=== PATIENT | female | born 1955 | race Caucasian/White ===

== ENCOUNTER 2016-11-10 10:55 | Emergency (ER) | payer BC ==
[~2016-11-10] VITALS: Ht 160 cm; Wt 78.0 kg
[~2016-11-10 10:55] MED LIST: AMBI5TAB PO; ASPI81TA85 PO; CALCCHW8 PO; CORE6.25 PO; FLON1SPR; LEVO75TA4 PO; LOTE1TAB PO; MELO15TA4 PO; METF500T PO; MULTTAB63 PO; TRIPCAP6 PO; VITA200010 PO; VITA500T88 PO; [UNRECOGNIZED DRUG - CODE]
[2016-11-10] MEDS ORDERED: MECLIZINE 25 MG TABLET PO ONE (12:30)
[2016-11-10] MEDS ORDERED: ONDANSETRON 4MG/2ML VIAL (J2405) IV ONE (12:30)
[2016-11-10 12:47] LABS: BASO % 0.6 % (0.0-1.0); EOS # 0.3 K/mm3 (0.0-0.50); EOS % 3.7 % (0.0-3.0); LARGE UNSTAINED CELL # 0.1 K/mm3 (0.0-0.4); LARGE UNSTAINED CELL % 1.2 % (0.0-4.0); LYMPH # 1.3 K/mm3 (1.5-4.5); LYMPH % 14.6 % (24.0-44.0); MEAN CORPUSCULAR HGB CONC 32.6 g/dl (32.0-36.5); MEAN CORPUSCULAR VOLUME 92.2 fl (80.0-96.0); MONO # 0.4 K/mm3 (0.0-0.8); MONO % 4.5 % (0.0-5.0); NEUTROPHILS # 5.9 K/mm3 (1.8-7.7); NEUTROPHILS % 75.4 % (36.0-66.0); PLATELET COUNT, AUTOMATED 234 k/mm3 (150-450); RED CELL DISTRIBUTION WIDTH 14.5 % (11.5-14.5); WHITE BLOOD COUNT 7.9 K/mm3 (4.0-10.0)
--- NOTE | 2016-11-10 13:00 | REP ---
CHEST X-RAY PA AND LATERAL 11/10/2016. Clinical history: Weakness. Comparison: CT chest 01/26/2011, PA chest 02/17/2010. Findings: Two-view show the CP angles sharply defined without effusion. There is no lateral pleural thickening, apical scarring, pneumothorax or mass. Basilar fibrotic change without consolidation or mass. No dense consolidation or parenchymal masses. Minor fibrotic changes are noted in the lung bases, right greater than left. There is no gross cardiomegaly, vascular redistribution or pulmonary edema. There are marginal osteophytes in the lower and mid thoracic spine without compression deformity. Impression: 1. Some minor basilar fibrotic change without cardiomegaly, edema, effusion or acute infiltrate. The aorta mildly tortuous but normal for age. Airway intact. Incidental note made of right upper quadrant clips from prior cholecystectomy. Signed by Sincere Garcia MD 11/10/2016 08:26 P
[2016-11-10 13:14] LABS: ALBUMIN 3.2 GM/DL (3.2-5.2); ALBUMIN/GLOBULIN RATIO 0.8 (1.00-1.93); BILIRUBIN,DIRECT 0.1 MG/DL (0.0-0.2); BILIRUBIN,TOTAL 0.5 MG/DL (0.2-1.0); CALCIUM LEVEL 8.5 MG/DL (8.8-10.2); CREATININE FOR GFR 1.04 MG/DL (0.55-1.02); POTASSIUM SERUM 3.9 MEQ/L (3.5-5.1); TOTAL PROTEIN 7.2 GM/DL (6.4-8.2)
--- NOTE | 2016-11-10 14:01 | REP ---
CT BRAIN WITHOUT CONTRAST: 11/10/2016. Clinical history: Vertigo and headache. No prior study. Ventricles are midline, symmetric and without dilatation or displacement. Basal ganglia are symmetric and normal. Hidalgo white junction differentiation is maintained. I do not see significant white matter changes. Cortical stripe is preserved with no vascular territory infarct, hemorrhage, mass, mass effect or edema. Only minimal atrophy which is age appropriate. Brainstem and cerebellum are grossly intact. Basal cisterns intact. Mastoids and sinuses visible were clear. The calvarium and skull base are without fracture or focal lesion. Impression: 1. There is no intracranial hemorrhage, acute infarct, mass, edema or extra-axial fluid collection. 2. White matter tracts unremarkable without ventriculomegaly or signs of atrophy. 3. Sinuses, mastoids, skull base and calvarium all intact. Nothing acute. Signed by Sincere Garcia MD 11/10/2016 08:27 P
[2016-11-10] MEDS ORDERED: MECL-68 PO (14:41)
[2016-11-10 15:13] VITALS: BP 156/82
--- NOTE | 2016-11-11 20:51 | ECGEPIP ---
Stationary ECG Study 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
== END 2016-11-10 15:24 | disposition home or self-care (01) ==
LOC: M ED 13:23
DX: H81.49 Vertigo of central origin, unspecified ear (principal); I10 Essential (primary) hypertension; E03.9 Hypothyroidism, unspecified; Z91.041 Radiographic dye allergy status; Z88.8 Allergy status to other drugs, medicaments and biological substances; Z91.013 Allergy to seafood; Z79.84 Long term (current) use of oral hypoglycemic drugs; Z79.899 Other long term (current) drug therapy; Z79.82 Long term (current) use of aspirin
CPT/HCPCS: 36415; 70450; 71020; 80048; 80076; 84443; 85025; 93005; 96374; 99284; J2405

== ENCOUNTER 2017-04-24 00:45 | Inpatient (IN) | payer OTHER, BC ==
[~2017-04-24] VITALS: Ht 160 cm; Wt 81.6 kg
[~2017-04-24 00:45] MED LIST changes: +MECL-68 PO; -METF500T PO; +METF500T13 PO; -[UNRECOGNIZED DRUG - CODE]; +[UNRECOGNIZED DRUG - CODE] TOP
[2017-04-24] MEDS ORDERED: IBUPROFEN 800 MG TAB As Ordered ONE (00:57)
[2017-04-24] MEDS ORDERED: PERCOCET 5MG/325MG TAB As Ordered ONE (00:58)
[2017-04-24] MEDS ORDERED: ONDANSETRON 4MG/2ML VIAL (J2405) As Ordered ONE (01:39)
[2017-04-24] MEDS ORDERED: HYDROmorphone HCL 1 MG/ML SYRINGE (J1170) As Ordered ONE (01:39)
[2017-04-24] MEDS ORDERED: PROPOFOL 200 MG/20 ML VIAL As Ordered ONE (03:24)
[2017-04-24] MEDS ORDERED: MORPHINE 4 MG/ML 1ML SYRINGE IV ONE (04:00)
[2017-04-24] MEDS ORDERED: OMEG100011 PO (05:00)
[2017-04-24] MEDS ORDERED: VITMTA PO (05:00)
[2017-04-24] MEDS ORDERED: TYLE500T78 PO (05:00)
[2017-04-24] MEDS ORDERED: EPIN1DRO OU (05:00)
[2017-04-24] MEDS ORDERED: ZOLP5TAB PO (05:00)
[2017-04-24] MEDS ORDERED: MECL-68 PO (05:00)
[2017-04-24] MEDS ORDERED: CALC1TAB30 PO (05:00)
[2017-04-24] MEDS ORDERED: BENA20TA6 PO (05:00)
--- NOTE | 2017-04-24 08:12 | REP ---
Right ankle four views: There is a spiral fracture of the distal fibula. The distal fracture fragment is angulated laterally and posteriorly. There are fracture fragments posteriorly, possibly from the medial malleolus and posterior malleolus. There is anterior dislocation of the distal tibia in relation to the talus. Impression: Tibiotalar dislocation. Trimalleolar fracture. Signed by Juan Jose Canseco MD 04/24/2017 08:02 A
--- NOTE | 2017-04-24 08:23 | REP ---
Portable right ankle, two views, post reduction: Comparison is the ankle series earlier this same date. There is a fiberglass splint. The dislocation has been satisfactorily reduced. The fractures have been satisfactorily reduced. Signed by Juan Jose Canseco MD 04/24/2017 08:13 A
--- NOTE | 2017-04-24 09:01 | REP ---
CT of the right ankle post reduction: Comparison studies are the plain films from earlier today. There is a trimalleolar fracture. The fractures have been satisfactorily reduced. The dislocation has been satisfactorily reduced. There is a posterior fiberglass splint. The ankle mortise appears symmetric. No calcaneal fracture is identified Signed by Juan Jose Canseco MD 04/24/2017 08:53 A
--- NOTE | 2017-04-24 09:04 | REP ---
PORTABLE CHEST, SINGLE VIEW: Comparison 11/10/2016. There is no evidence of acute infiltrate. No pleural effusion is seen. The heart is normal in size. The mediastinal silhouette is unremarkable. The visualized osseous structures are intact. IMPRESSION: No acute pulmonary disease. Signed by Juan Jose Hidalgo MD 04/24/2017 09:42 A
[2017-04-24] MEDS ORDERED: MORPHINE 2 MG/ML 1ML SYRINGE As Ordered ONE (09:18)
[2017-04-24 10:20] VITALS: BP 173/78
[2017-04-24 11:15] LABS: BASO % 0.7 % (0.0-1.0); EOS # 0.2 K/mm3 (0.0-0.50); EOS % 3.5 % (0.0-3.0); LARGE UNSTAINED CELL # 0.2 K/mm3 (0.0-0.4); LARGE UNSTAINED CELL % 3.1 % (0.0-4.0); MEAN CORPUSCULAR HGB CONC 34.5 g/dl (32.0-36.5); MEAN CORPUSCULAR VOLUME 89.9 fl (80.0-96.0); MONO # 0.4 K/mm3 (0.0-0.8); MONO % 6.3 % (0.0-5.0); NEUTROPHILS % 52.4 % (36.0-66.0); PLATELET COUNT, AUTOMATED 238 k/mm3 (150-450); RED CELL DISTRIBUTION WIDTH 13.5 % (11.5-14.5); WHITE BLOOD COUNT 5.8 K/mm3 (4.0-10.0)
[2017-04-24] MEDS: LEVOTHYROXINE 75MCG TABLET (0.075MG) PO SCH (11:24)
[2017-04-24] MEDS: CARVedilol 6.25 MG TAB PO SCH ×2 (11:25→21:20)
[2017-04-24 11:32] LABS: ALBUMIN 3.2 GM/DL (3.2-5.2); ALBUMIN/GLOBULIN RATIO 1.07 (1.00-1.93); BILIRUBIN,TOTAL 0.5 MG/DL (0.2-1.0); CALCIUM LEVEL 8.5 MG/DL (8.8-10.2); CREATININE FOR GFR 1.09 MG/DL (0.55-1.02); TOTAL PROTEIN 6.2 GM/DL (6.4-8.2)
[2017-04-24] MEDS ORDERED: PERCOCET 5MG/325MG TAB PO PRN (11:45)
[2017-04-24] MEDS ORDERED: ONDANSETRON 4MG/2ML VIAL (J2405) IV PRN (11:45)
[2017-04-24 11:47] LABS: INR 0.97
[2017-04-24] MEDS ORDERED: PERCOCET 5MG/325MG TAB PO ONE (12:00)
[2017-04-24 12:45] VITALS: BP 129/61
[2017-04-24] MEDS: MORPHINE 4 MG/ML 1ML SYRINGE IV PRN ×3 (13:34→22:45)
[2017-04-24] MEDS ORDERED: MOM 30ML SUSPENSION UDC PO PRN (14:15)
[2017-04-24] MEDS ORDERED: MECLIZINE 25 MG TABLET PO PRN (14:15)
[2017-04-24] MEDS ORDERED: PERCOCET 5MG/325MG TAB PO SCH (15:45)
[2017-04-24] MEDS: OLOPATADINE 0.1% OPHTH SOL 5ML(PATANOL) OU SCH (15:54)
[2017-04-24] MEDS: PERCOCET 5MG/325MG TAB PO PRN (15:55)
[2017-04-24 16:00] VITALS: BP 132/60
--- NOTE | 2017-04-24 18:59 | ECGEPIP ---
Stationary ECG Study [facility] Test Date: 2017-04-24 Pat Name: OBIE CLIFFORD Department: Room: [place] [address] Gender: F Risk Analyst: : 1955 Requested By: LUANN Oconnell Order Number: [id number] Reading MD: Agus Shell Measurements Intervals [place] Rate: 57 P: 64 MO: 187 QRS: 23 QRSD: 101 T: 88 QT: 411 QTc: 403 Interpretive Statements Sinus bradycardia Delayed anterior R-wave progression Nonspecific ST-T wave abnormalities No significant change from 11/10/2016 Electronically Signed On 04-24-2017 18:58:46 EDT by Agus Shell
[2017-04-24 20:00] VITALS: BP 123/57
[2017-04-24] MEDS: SENOKOT S TAB PO SCH (21:20)
--- NOTE | 2017-04-24 21:33 | CR ---
DATE OF CONSULTATION: 04/24/2017 Ms. Brown is a patient of Dr. Agus Shell. This consultation is completed for Dr. Raj De Dios. CHIEF COMPLAINT: Right ankle fracture/dislocation. SUMMARY OF PRESENTATION: This is a 61-year-old who is working at [employer]. She was moving a chair from a patient's room back to the common area, tripped, and had right ankle pain. Was brought to the emergency room for evaluation and was found to have a fractured/dislocated right ankle that was reduced in the emergency department. She was seen in consultation by Dr. De Dios, who plans to take her for surgical correction. Was called for preoperative evaluation. PAST MEDICAL HISTORY: Notable for: 1. Hypertension. 2. Glucose intolerance, although she is on metformin. 3. Hypothyroidism. 4. Osteoarthritis of the left shoulder due to a rotator cuff injury, which was repaired by Dr. Carlos Garcia. 5. Allergic conjunctivitis. 6. Vertigo. 7. Situational insomnia. 8. Tobacco abuse, in remission. SURGICAL HISTORY: Notable for: 1. Tonsillectomy. 2. Tubal ligation. 3. Partial hysterectomy. 4. Dilatation and curettage. 5. Cholecystectomy. 6. Facial scar revision. 7. Left carpal tunnel release. 8. Thyroid nodule biopsy. 9. Rotator cuff surgery, right. 10. Rotator cuff surgery, left. ALLERGIES: BIAXIN, TETRACYCLINE, VALIUM, IV DYE. FAMILY HISTORY: Notable for father who has hypertension, heart disease, cancer. Mother , diagnosed with diabetes, hypertension, heart disease. SOCIAL HISTORY: She is a former smoker. REVIEW OF SYSTEMS: Notable for no headache. No visual changes. No runny nose. No sore throat. No cough. She has been feeling well recently. No orthopnea. No paroxysmal nocturnal dyspnea. No palpitations. She has excellent exercise tolerance. Easily able to go up a flight of stairs with a basket of laundry. She has not experienced chest pain or shortness of breath. No history of seizures. Otherwise unremarkable. PHYSICAL EXAMINATION: Temperature 98.4, pulse 61, respirations 18, blood pressure 129/61, 98% on room air. She is awake, appropriately interactive, pleasantly conversant. Breathing is symmetrical and rested. Heart is in a regular rate and rhythm. Abdomen soft, doughy, nontender. Right lower extremity is splinted. Capillary refill is less than 2 seconds at her great toe. Sensation is intact. White cell count 5.8, hemoglobin 11.6, platelets 238. INR 0.97. BUN 19, creatinine 1.09. TSH 4.76. A chest x-ray is unremarkable. EKG shows sinus bradycardia with a rate of 57. Possible left atrial enlargement. Nonspecific ST-T-wave abnormality and are quite similar to tracing done 11/10/2016. ASSESSMENT: This is a 61-year-old with fractured/dislocated right ankle. PLAN: 1. Orthopedic. I discussed this case twice today with Dr. De Dios. Plan is for surgical repair of the ankle. Deep vein thrombosis (DVT) prophylaxis, surgical repair, pain management, gastrointestinal (GI) regimen, activity, and rehabilitation per orthopedics. 2. Cardiovascular. Patient has excellent cardiovascular tolerance. Would recommend continuing her Coreg in the perioperative period, but apart from that recommend no further workup or treatment prior to advancing the surgery, but patient does have hypertension. In the perioperative period we will be holding the angiotensin-converting enzyme (MARIBETH) inhibitor and hydrochlorothiazide. 3. Patient has hypothyroidism. Continue Synthroid. 4. Patient has glucose intolerance. There is no role for metformin in this setting. Will put the patient on a consistent-carbohydrate diet. Will check fingersticks twice daily. Can restart metformin at the time of discharge. If necessary will give insulin during the stay. I have elected not to start insulin now. Her most recent hemoglobin A1c was 5.5.
--- NOTE | 2017-04-24 21:49 | CR ---
DATE OF CONSULTATION: 04/24/2017 CHIEF COMPLAINT: Right ankle fracture dislocation. 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 The injury happened last evening. She was seen in the ER. Orthopedics was consulted. I initially saw the patient in the ER in the morning first thing. I appreciated that she had been reduced by Dr. De Leon, the ER physician, and splinted and the reduction appeared to be reasonable with the talus well aligned at that point and her pain was better controlled at that point. The pain is controlled with narcotics as well as because of the reduction. I reviewed the imaging studies which revealed trimalleolar fracture both pre and post reduction. CT scan. We ordered a CT scan and that was also reviewed. The CT scan reflects a fibula fracture, a posterior and medial malleolar component to the trimalleolar with significant comminution and only a thin rim of bone extending around the medial malleolus and the anterior portion of the medial malleolus still seemed to be intact. ALLERGIES: The patient has allergies to CONTRAST, DIAZEPAM, IODINE, TETRACYCLINE, CLARITHROMYCIN, possible shellfish allergy. MEDICAL HISTORY: Includes high blood pressure, hypothyroidism, insulin resistant diabetes, insomnia. SURGICAL HISTORY: Includes multiple rotator cuff repairs of both shoulders and abdominal surgery in the past. No right lower extremity surgery. MEDICATIONS: Include: - Coreg - meloxicam - levothyroxine - metformin - aspirin - vitamin D - vitamin C - Flonase - meclizine - Zolpidem - Tylenol SOCIAL HISTORY: Nonsmoker. 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 FAMILY HISTORY: Not contributory. She has a son and daughter in the area. REVIEW OF SYSTEMS: Her only complaint was right ankle pain, not complaining of loss of consciousness, dizziness, shortness of breath, headache, chest pain, neck pain, abdominal pain, numbness, tingling or any endocrine disorder or bleeding disorder. IMPRESSION: Trimalleolar fracture of the right ankle. RECOMMENDATIONS: Talked to the patient about different potential interventions. In my opinion, I would recommend operative fixation of the ankle fracture. We completed a preoperative packet including a consent document which involved a viv discussion of the pathology involved, the procedure proposed, the alternatives including doing nothing and the risks including but not limited to pain, failure, infection, bleeding, blood loss, limp, incomplete relief of symptoms, post-traumatic arthritis, blood clots and other problems. She understands and agrees to proceed with surgery. Also talked about the possibility of one of our other [facility] surgeons accomplishing the case. Coordinated with hospitalist service with respect to medical optimization and coordinated with the operating room with respect to surgical scheduling. For further details please refer to the medical record.
[2017-04-25] VITALS (10 sets, daily range): BP systolic 124–166; BP diastolic 59–79
[2017-04-25] MEDS: PERCOCET 5MG/325MG TAB PO PRN ×3 (00:42→12:00)
[2017-04-25] MEDS: MORPHINE 4 MG/ML 1ML SYRINGE IV PRN ×3 (03:05→14:07)
[2017-04-25] MEDS: LEVOTHYROXINE 75MCG TABLET (0.075MG) PO SCH (05:53)
[2017-04-25] MEDS ORDERED: NS 1,000 ML IV SCH (07:00)
[2017-04-25 07:14] LABS: MEAN CORPUSCULAR HEMOGLOBIN 31.1 pg (27.0-33.0); MEAN CORPUSCULAR HGB CONC 34.2 g/dl (32.0-36.5); RED CELL DISTRIBUTION WIDTH 13.7 % (11.5-14.5); WHITE BLOOD COUNT 4.2 K/mm3 (4.0-10.0)
[2017-04-25 07:32] LABS: CALCIUM LEVEL 8.4 MG/DL (8.8-10.2); GLOMERULAR FILTRATION RATE 59.6 (>45); MAGNESIUM LEVEL 1.7 MG/DL (1.8-2.4); PERCENT SATURATION 19.4 % (13.2-45.0); POTASSIUM SERUM 3.6 MEQ/L (3.5-5.1)
[2017-04-25] MEDS: FLUTICASONE PROP 0.05% NASAL SPRAY 16 GM (FLONASE) SCH ×2 (08:14→09:42)
[2017-04-25] MEDS: MULTIVITAMINS/MINERALS THERAP 1 TAB PO SCH ×2 (08:14→09:42)
[2017-04-25] MEDS: OLOPATADINE 0.1% OPHTH SOL 5ML(PATANOL) OU SCH ×2 (09:42→17:00)
[2017-04-25] MEDS: SENOKOT S TAB PO SCH ×2 (09:43→20:45)
[2017-04-25] MEDS: CARVedilol 6.25 MG TAB PO SCH ×2 (09:46→20:46)
[2017-04-25] MEDS ORDERED: MAG SULF 1GM/100ML (MAG RUN) 1 GM in APPROPRIATE DILUENT 1 EA IV ONE (16:00)
[2017-04-25] MEDS ORDERED: PROPOFOL 200 MG/20 ML VIAL As Ordered ONE (16:30)
[2017-04-25] MEDS ORDERED: fentaNYL 100 MCG/2 ML INJECTION (J3010) As Ordered ONE (16:30)
[2017-04-25] MEDS ORDERED: LIDOCAINE 2% INJ 100 MG/5 ML SDV (FOR ANES.) As Ordered ONE (16:33)
[2017-04-25] MEDS ORDERED: PHENYLephrine HCL 500 MCG/5 ML (100MCG/ML) SYRINGE (J2370) As Ordered ONE (17:04)
--- NOTE | 2017-04-25 19:52 | REP ---
Right ankle series: Six views intraprocedural. History: Right ankle fracture dislocation. 26 seconds of fluoroscopy time is reported. Findings: A sequence of six last image hold fluoroscopic spot radiographs document normal alignment of the ankle mortise. The trimalleolar fracture subluxation is fairly well aligned. Signed by Viktor Pires MD 04/26/2017 08:10 A
[2017-04-25] MEDS: LR 1,000 ML IV SCH (20:46)
[2017-04-26] VITALS: BP 130/60
[2017-04-26 04:00] VITALS: BP 142/76
[2017-04-26] MEDS: LR 1,000 ML IV SCH (04:36)
[2017-04-26] MEDS: LEVOTHYROXINE 75MCG TABLET (0.075MG) PO SCH (06:09)
[2017-04-26 07:04] LABS: MEAN CORPUSCULAR HEMOGLOBIN 31.3 pg (27.0-33.0); MEAN CORPUSCULAR HGB CONC 34.6 g/dl (32.0-36.5); MEAN CORPUSCULAR VOLUME 90.6 fl (80.0-96.0); RED CELL DISTRIBUTION WIDTH 13.7 % (11.5-14.5); WHITE BLOOD COUNT 6.4 K/mm3 (4.0-10.0)
[2017-04-26 07:27] LABS: ANION GAP 9 MEQ/L (8-16); BLOOD UREA NITROGEN 8 MG/DL (7-18); CALCIUM LEVEL 7.7 MG/DL (8.8-10.2); CARBON DIOXIDE LEVEL 27 MEQ/L (21-32); CHLORIDE LEVEL 106 MEQ/L (98-107); CREATININE FOR GFR 0.83 MG/DL (0.55-1.02); GLOMERULAR FILTRATION RATE > 60.0 (>45); GLUCOSE, FASTING 81 MG/DL (80-110); POTASSIUM SERUM 3.9 MEQ/L (3.5-5.1); SODIUM LEVEL 142 MEQ/L (136-145)
[2017-04-26 08:00] VITALS: BP 165/77
[2017-04-26] MEDS ORDERED: PERC5TAB12 PO (08:24)
[2017-04-26] MEDS ORDERED: LOVE1INJ SC (08:46)
[2017-04-26] MEDS: MULTIVITAMINS/MINERALS THERAP 1 TAB PO SCH (08:48)
[2017-04-26] MEDS: SENOKOT S TAB PO SCH (08:48)
[2017-04-26 08:49] VITALS: BP 165/77
[2017-04-26] MEDS: OLOPATADINE 0.1% OPHTH SOL 5ML(PATANOL) OU SCH (08:49)
[2017-04-26] MEDS: CARVedilol 6.25 MG TAB PO SCH (08:49)
[2017-04-26] MEDS: FLUTICASONE PROP 0.05% NASAL SPRAY 16 GM (FLONASE) SCH (08:49)
--- NOTE | 2017-04-26 09:34 | RO ---
DATE OF PROCEDURE: 04/25/2017 PREPROCEDURE DIAGNOSIS: Right unstable trimalleolar fracture - dislocation. POSTPROCEDURE DIAGNOSIS: Right unstable trimalleolar fracture - dislocation. PROCEDURE: Closed reduction right ankle fracture with application short leg cast. SURGEON: Glendy Ballesteros MD RECYCLING SORTER: None. ANESTHESIA: Conscious sedation. COMPLICATIONS: None. CONDITION: Stable to recovery. INDICATION: Pauline Brown is a 61-year-old female who sustained a fall at work on 04/24/2017 resulting in a right trimalleolar ankle fracture dislocation. The patient was seen in the emergency room at the time of her injury and underwent a provisional reduction of her ankle fracture/dislocation by my partner, with plans to go to the operating room the next day. Upon arrival to the postanesthesia care unit (PACU), the patient's splint was taken down and the skin was examined to insure that it would safe to operate on the patient at this time. Unfortunately, since being seen in the emergency room, the patient had developed a line of fracture blisters over the lateral aspect of the ankle. This was right in the area where the incision for the surgery was to be made. It was deemed not safe to do the surgery at this time to due to risk of infection and/or wound dehiscence associated with operating in the area of fracture blisters. Given the patient would have to wait approximately 2 weeks for surgery it was suggested she undergo closed reduction with application of a short leg cast so that her fracture would be kept in a stable alignment over the next 14 days while her swelling and soft tissues have time to improve. The patient agreed with the plan to wait to perform surgery until her soft tissue envelope had healed as to lower her risk of wound issues and infection. Risks and benefits of closed reduction and a short leg cast were discussed with the patient in detail and the patient gave consent. DESCRIPTION OF PROCEDURE: The patient was taken to the operating room after her right lower extremity was marked. She was given a conscious sedation by anesthesia and a closed reduction was performed using multiple orthogonal views on C-arm. A short-leg cast was placed. Adequate padding was placed throughout the ankle given the soft tissue envelope was quite swollen with the fracture blisters. The patient awoke from the conscious sedation without any difficulty and was transferred back to her room. PLAN: The patient will be non-weightbearing in her right lower extremity. She will keep her leg elevated 90% of the day. She will followup with me in approximately 10 days. We will plan on fixing her ankle around the 2-week peg. At this time, we would expect the soft tissue envelop to have improved. She will go home on DVT prophylaxis given she will not be very active over the next 2 weeks. ALISSAD
[2017-04-27] MEDS ORDERED: INFLUENZA QUADRIVALENT PF VACCINE 0.5ML SYRINGE (90686) IM ONE (09:00)
--- NOTE | 2017-04-30 18:57 | CR ---
DATE OF CONSULTATION: 04/24/2017 ADDENDUM: Patient was appreciated be alert, oriented and cooperative. Mood and affect are appropriate. She appeared be comfortable after the emergency room (ER) had reduced the extremity, which was splinted. Her toes were warm and well perfused and sensate. No effusion was present at either knee. No pain with rotation of either hip. Healthy skin was appreciated in the face, upper and left lower extremity. Right lower extremity is splinted; however, there is no fluid on the splint. For further details please refer to medical record.
--- NOTE | 2017-05-01 11:05 | DSES ---
DATE OF ADMISSION: 04/25/2017 DATE OF DISCHARGE: 04/26/2017 ADMITTING DIAGNOSIS: Right unstable trimalleolar fracture-dislocation. OTHER DIAGNOSES: Hypertension. Glucose intolerance. Hypothyroidism. Osteoarthritis of the left shoulder. Allergic conjunctivitis. Vertigo. Insomnia. Tobacco abuse. DISCHARGE DIAGNOSIS: Right unstable trimalleolar fracture-dislocation status post closed reduction and placement of a short leg cast. ATTENDING PHYSICIAN: Dr. Glendy Ballesteros OPERATION PERFORMED: Closed reduction and placement of a short leg cast for a right unstable trimalleolar ankle fracture-dislocation. HISTORY: This is a pleasant, 61-year-old female patient who injured herself at work on 04/24/2017. She was noted to have a unstable right trimalleolar ankle fracture. She was splinted and medical optimization was obtained. On the proposed day of surgery, she was seen in the preoperative area and was noted that she had developed fracture blisters and so open reduction and internal fixation was not completed that day. Patient then underwent a sedated closed reduction of her unstable right ankle fracture with application of a short leg cast on the right side, which was uneventful. On day of discharge, she was non-weightbearing on her right lower extremity. She will elevate her leg for 90% of the day. She will followup in 10 days at our office for followup. She was prescribed deep venous thrombosis (DVT) prophylaxis on day of discharge. She will use oral pain medications for pain control. She was given instructions as above but not limited to the instructions above. Please refer to the medical record for further details.
== END 2017-04-26 12:05 | disposition home or self-care (01) | DRG 342 ==
LOC: M ED 00:45 → M SDC 07:30 → M PED 10:07 → M SDC 04-25 08:20 → M PED 04-25 08:21
PROVIDERS: ADMIT Orthopaedic Surgery; ATTEND Orthopaedic Surgery
PROC: 0QSJXZZ Reposition Right Fibula, External Approach (ICD-10-PCS; principal; 2017-04-25 16:00)
DX: S82.854A Nondisplaced trimalleolar fracture of right lower leg, initial encounter for closed fracture (principal); I10 Essential (primary) hypertension; E03.9 Hypothyroidism, unspecified; Z88.8 Allergy status to other drugs, medicaments and biological substances; Z91.041 Radiographic dye allergy status; E11.9 Type 2 diabetes mellitus without complications; G47.00 Insomnia, unspecified; W18.30XA Fall on same level, unspecified, initial encounter; Y92.128 Other place in nursing home as the place of occurrence of the external cause

== ENCOUNTER → 2017-07-16 | Outpatient (REF) | payer OTHER, BC ==
[~2017-07-16] MED LIST changes: +BENA20TA6 PO; +CALC1TAB30 PO; +EPIN1DRO OU; +LOVE1INJ SC; +OMEG100011 PO; +PERC5TAB12 PO; +TYLE500T78 PO; +VITMTA PO; +ZOLP5TAB PO
[2017-07-16 12:57] LABS: CALCIUM LEVEL 9.1 MG/DL (8.8-10.2); CREATININE FOR GFR 1.01 MG/DL (0.55-1.02); GLOMERULAR FILTRATION RATE 58.9 (>45)
== END ==
LOC: M LABDRAW1 12:13
PROVIDERS: ATTEND Physician Assistant
DX: Z01.812 Encounter for preprocedural laboratory examination (principal); S82.851D Displaced trimalleolar fracture of right lower leg, subsequent encounter for closed fracture with routine healing; X58.XXXD Exposure to other specified factors, subsequent encounter

== ENCOUNTER → 2017-08-30 | Outpatient (REF) | payer BC ==
[2017-08-30 10:44] LABS: HEMATOCRIT 37.1 % (36.0-47.0); HEMOGLOBIN 12.3 g/dl (12.0-16.0); MEAN CORPUSCULAR HGB CONC 33.2 g/dl (32.0-36.5); MEAN CORPUSCULAR VOLUME 87.5 fl (80.0-96.0); PLATELET COUNT, AUTOMATED 249 10^3/uL (150-450); RED BLOOD COUNT 4.24 10^6/uL (4.00-5.40); RED CELL DISTRIBUTION WIDTH 14.5 % (11.5-14.5); WHITE BLOOD COUNT 5.6 10^3/uL (4.0-10.0)
[2017-08-30 11:20] LABS: ALBUMIN 3.9 GM/DL (3.2-5.2); ALBUMIN/GLOBULIN RATIO 1.26 (1.00-1.93); ALKALINE PHOSPHATASE 57 U/L (45-117); ALT/SGPT 17 U/L (12-78); ANION GAP 7 MEQ/L (8-16); AST/SGOT 16 U/L (7-37); BILIRUBIN,TOTAL 0.5 MG/DL (0.2-1.0); BLOOD UREA NITROGEN 25 MG/DL (7-18); CALCIUM LEVEL 9.2 MG/DL (8.8-10.2); CARBON DIOXIDE LEVEL 29 MEQ/L (21-32); CHLORIDE LEVEL 104 MEQ/L (98-107); CHOLESTEROL LEVEL 214 MG/DL (<200); CHOLESTEROL RISK RATIO 3.194 (<5); CREATININE FOR GFR 0.98 MG/DL (0.55-1.02); GLOMERULAR FILTRATION RATE > 60.0 (>45); GLUCOSE, FASTING 84 MG/DL (70-100); HDL CHOLESTEROL 67 MG/DL (>40); LDL CHOLESTEROL 119.2 MG/DL (<100); NON-HDL-C 147 MG/DL; POTASSIUM SERUM 4.1 MEQ/L (3.5-5.1); SODIUM LEVEL 140 MEQ/L (136-145); TRIGLYCERIDES LEVEL 139 MG/DL (<150)
== END ==
LOC: M LABDRAW1 09:19
DX: E78.00 Pure hypercholesterolemia, unspecified (principal); E03.9 Hypothyroidism, unspecified; Z79.899 Other long term (current) drug therapy; Z79.890 Hormone replacement therapy; I10 Essential (primary) hypertension
CPT/HCPCS: 84443

== ENCOUNTER → 2017-08-30 | Outpatient (REF) | payer BC | LOC: M SFHCPLAZ 08:00 | DX: E03.9 Hypothyroidism, unspecified (principal); Z79.899 Other long term (current) drug therapy; Z79.890 Hormone replacement therapy; I10 Essential (primary) hypertension; E78.00 Pure hypercholesterolemia, unspecified ==

== ENCOUNTER → 2017-09-02 | Outpatient (CLI) | payer BC | LOC: M WHC 12:16 | DX: Z13.820 Encounter for screening for osteoporosis (principal); Z87.81 Personal history of (healed) traumatic fracture (principal) | CPT/HCPCS: 77080 ==

== ENCOUNTER → 2017-09-02 | Outpatient (CLI) | payer BC | LOC: M WHC 12:21 | DX: Z12.31 Encounter for screening mammogram for malignant neoplasm of breast (principal); Z80.3 Family history of malignant neoplasm of breast | CPT/HCPCS: 77067 ==

== ENCOUNTER → 2017-10-31 | Outpatient (REF) | payer BC | LOC: M LABDRAW1 11:33 | DX: E03.9 Hypothyroidism, unspecified (principal) | CPT/HCPCS: 84443 ==

== ENCOUNTER → 2018-08-27 | Outpatient (REF) | payer BC ==
[~2018-08-27] MED LIST changes: +MELO15TA28 PO; -MELO15TA4 PO
[2018-08-27 11:06] LABS: HEMOGLOBIN A1c 5.6 %
[2018-08-27 11:09] LABS: ALBUMIN 3.4 GM/DL (3.2-5.2); BILIRUBIN,TOTAL 0.3 MG/DL (0.2-1.0); CALCIUM LEVEL 8.7 MG/DL (8.8-10.2); CHOLESTEROL RISK RATIO 2.926 (<5); CREATININE FOR GFR 1.09 MG/DL (0.55-1.30); GLOMERULAR FILTRATION RATE 53.6 (>45); MAGNESIUM LEVEL 1.6 MG/DL (1.8-2.4); POTASSIUM SERUM 4.5 MEQ/L (3.5-5.1); THYROID STIMULATING HORMONE 1.81 uIU/ML (0.358-3.740); TOTAL PROTEIN 6.7 GM/DL (6.4-8.2)
== END ==
LOC: M SFHCPLAZ 07:40
PROVIDERS: ATTEND Internal Medicine
DX: I10 Essential (primary) hypertension (principal); E88.81 Metabolic syndrome and other insulin resistance; E78.00 Pure hypercholesterolemia, unspecified; E03.9 Hypothyroidism, unspecified

== ENCOUNTER → 2018-09-15 | Outpatient (CLI) | payer MEDICARE ==
--- NOTE | 2018-09-15 08:55 | REPMRS ---
Patient History The patient states she has not had a clinical breast exam in over a year. Family history of breast cancer at age 30 in maternal cousin, prostate cancer at age 50 or over in father, colorectal cancer at age 50 in maternal aunt, prostate cancer at age 50 or over in brother. Took unspecified hormones for 27 years 6 months. 3D TOMOSYNTHESIS WAS PERFORMED. Digital Woman Screen Mammo: September 15, 2018 - Exam #: [id number] Bilateral CC and MLO view(s) were taken. Technologist: Ophelia Prescott, Technologist Prior study comparison: September 02, 2017, digital woman screen mammo performed at [email or web address]. June 13, 2016, digital woman screen mammo performed at [email or web address]. FINDINGS: There are scattered fibroglandular densities. There has been no change in the appearance of the mammogram from the prior studies. There is a mild amount of residual fibroglandular tissue which is fairly symmetric. There is no interval development of dominant mass, architectural distortion, or clustered microcalcification suggestive of malignancy. Assessment: BI-RADS/ACR category 1 mammogram. Negative Mammogram. Recommendation Routine screening mammogram in 1 year (for women over age 40). This mammogram was interpreted with the aid of an FDA-approved computer-aided dectection system. Electronically Signed By: Juan Jose Hidalgo MD 09/15/18 0844
== END ==
LOC: M WHC 07:49
PROVIDERS: ATTEND Internal Medicine
DX: Z12.31 Encounter for screening mammogram for malignant neoplasm of breast (principal); Z80.3 Family history of malignant neoplasm of breast; Z80.0 Family history of malignant neoplasm of digestive organs; Z80.42 Family history of malignant neoplasm of prostate

== ENCOUNTER → 2019-03-16 | Outpatient (REF) | payer OTHER ==
[2019-03-16 12:50] LABS: CALCIUM LEVEL 9.5 MG/DL (8.8-10.2); CREATININE FOR GFR 1.31 MG/DL (0.55-1.30); GLOMERULAR FILTRATION RATE 43.4 (>45); POTASSIUM SERUM 4.2 MEQ/L (3.5-5.1); THYROID STIMULATING HORMONE 2.14 uIU/ML (0.358-3.740)
== END ==
LOC: M SFHCADAM 08:29
PROVIDERS: ATTEND Internal Medicine
DX: I10 Essential (primary) hypertension (principal); E03.9 Hypothyroidism, unspecified

== ENCOUNTER → 2019-04-01 | Outpatient (REF) | payer OTHER ==
[2019-04-01 12:58] LABS: CALCIUM LEVEL 9.6 MG/DL (8.8-10.2); CREATININE FOR GFR 1.31 MG/DL (0.55-1.30); GLOMERULAR FILTRATION RATE 43.4 (>45); MAGNESIUM LEVEL 1.9 MG/DL (1.8-2.4); POTASSIUM SERUM 5.2 MEQ/L (3.5-5.1)
== END ==
LOC: M SFHCADAM 08:31
PROVIDERS: ATTEND Internal Medicine
DX: I10 Essential (primary) hypertension (principal)

== ENCOUNTER → 2019-04-09 | Outpatient (CLI) | payer OTHER ==
--- NOTE | 2019-04-09 08:29 | REP ---
Clinical: Hypertension and chronic medical renal disease. Technique: Hidalgo scale and color Doppler evaluation of the kidneys and renal vasculature using curved array transducer. Findings: The kidneys are essentially normal in contour size and echogenicity and reniform shape without hydronephrosis, nephrolithiasis, cystic or renal mass lesion. Right kidney measures 10.2 x 4.2 x 4.6 cm . Left kidney measures 9.5 x 4.3 x 4.0 cm. Bladder is incompletely distended and grossly normal by current evaluation. Color Doppler evaluation of the renal vasculature demonstrates normal arterial wave patterns, velocities, renal aortic ratios, resistive indices and the acceleration time. No sonographic evidence for renal arterial stenosis noted. Renal vein is patent. Right Kidney: Peak arterial velocity: 151 cm/sec . Renal aortic ratio: 1.8 . Resistive indices: 0.62 - 0.65 . Acceleration times: 0.005 - 0.016 . Left kidney: Peak arterial velocity: 115 cm/sec . Renal aortic ratio: 1.4 . Resistive indices: 0.63 - 0.67 . Acceleration times: 0.019 - 0.025 . Impression: 1. Normal renal ultrasound. 2. No sonographic evidence to suggest renal arterial stenosis. Electronically Signed by Jeanmarie Noriega MD 04/09/2019 08:20 A
== END ==
LOC: M RAD 07:28
PROVIDERS: ATTEND Internal Medicine
DX: I10 Essential (primary) hypertension (principal)

== ENCOUNTER → 2019-04-27 | Outpatient (REF) | payer OTHER ==
[2019-04-27 12:34] LABS: CALCIUM LEVEL 9.7 MG/DL (8.8-10.2); CREATININE FOR GFR 1.32 MG/DL (0.55-1.30); POTASSIUM SERUM 4.6 MEQ/L (3.5-5.1)
[2019-04-29 11:05] LABS: CREATININE, URINE 68.7 MG/DL; MALB URINE SIEMENS 15.7 MG/L; MAU/CREAT RATIO 22.8 MCG/MG (0.0-30.0)
== END ==
LOC: M SFHCADAM 08:17
PROVIDERS: ATTEND Internal Medicine
DX: I10 Essential (primary) hypertension (principal)

== ENCOUNTER → 2019-08-26 | Outpatient (REF) | payer OTHER ==
[~2019-08-26] MED LIST changes: -MECL-68 PO; +MECL1TAB31 PO
[2019-08-26 11:00] LABS: HEMATOCRIT 37.2 % (36.0-47.0); HEMOGLOBIN 12.1 g/dl (12.0-15.5); MEAN CORPUSCULAR HEMOGLOBIN 30.9 pg (27.0-33.0); MEAN CORPUSCULAR HGB CONC 32.5 g/dl (32.0-36.5); MEAN CORPUSCULAR VOLUME 95.1 fl (80.0-96.0); PLATELET COUNT, AUTOMATED 277 10^3/uL (150-450); RED BLOOD COUNT 3.91 10^6/uL (4.00-5.40); WHITE BLOOD COUNT 5.2 10^3/uL (4.0-10.0)
[2019-08-26 11:30] LABS: HEMOGLOBIN A1c 5.7 %
[2019-08-26 11:42] LABS: ALBUMIN 4.2 GM/DL (3.2-5.2); BILIRUBIN,TOTAL 0.5 MG/DL (0.2-1.0); CHOLESTEROL RISK RATIO 4.254 (<5); CREATININE FOR GFR 1.56 MG/DL (0.55-1.30); GLOMERULAR FILTRATION RATE 35.3 (>45); MAGNESIUM LEVEL 2.1 MG/DL (1.8-2.4); POTASSIUM SERUM 5.5 MEQ/L (3.5-5.1); THYROID STIMULATING HORMONE 3.27 uIU/ML (0.358-3.740); TOTAL 25(OH) VITAMIN D 48.4 NG/ML (30.0-100.0); TOTAL PROTEIN 7.6 GM/DL (6.4-8.2)
== END ==
LOC: M SFHCPLAZ 07:39
PROVIDERS: ATTEND Internal Medicine
DX: J30.9 Allergic rhinitis, unspecified (principal); I10 Essential (primary) hypertension; E88.81 Metabolic syndrome and other insulin resistance; E78.00 Pure hypercholesterolemia, unspecified; E03.9 Hypothyroidism, unspecified; Z87.81 Personal history of (healed) traumatic fracture; Z79.899 Other long term (current) drug therapy

== ENCOUNTER → 2019-09-18 | Outpatient (CLI) | payer OTHER ==
--- NOTE | 2019-09-18 08:50 | REPMRS ---
Patient History The patient states she had a clinical breast exam in September 2018.Family history of breast cancer at age 30 in maternal cousin, prostate cancer at age 50 or over in father, colorectal cancer at age 50 in maternal aunt, prostate cancer at age 50 or over in brother. Took unspecified hormones for 27 years 6 months. Digital Woman Screen Mammo: September 18, 2019 - Exam #: [id number] Bilateral CC and MLO view(s) were taken. Technologist: Kelli Lim, Technologist Prior study comparison: September 15, 2018, bilateral digital woman screen mammo performed at [facility]. September 02, 2017, digital woman screen mammo performed at [facility]. June 13, 2016, digital woman screen mammo performed at [facility]. FINDINGS: There are scattered fibroglandular densities. There are prominent subareolar ducts again noted on the right unchanged. There has been no change in the appearance of the mammogram from the prior studies. There is a mild amount of scattered fibroglandular density which is fairly symmetric. There is no interval development of dominant mass, architectural distortion, or grouped microcalcification suggestive of malignancy. 3-D tomosynthesis shows no additional findings. Assessment: BI-RADS/ACR category 2 mammogram. Benign Findings. Recommendation Routine screening mammogram of both breasts in 1 year (for women over age 40). This patient's Lifetime Breast Cancer Risk is estimated at 7.2 %. This mammogram was interpreted with the aid of an FDA-approved computer-aided dectection system. Electronically Signed By: Derian Pires MD 09/18/19 0849
== END ==
LOC: M WHC 07:48
PROVIDERS: ATTEND Obstetrics & Gynecology
DX: Z12.31 Encounter for screening mammogram for malignant neoplasm of breast (principal)

== ENCOUNTER → 2020-02-22 | Outpatient (REF) | payer OTHER ==
[~2020-02-22] MED LIST changes: -ASPI81TA85 PO; +ASPI81TA86 PO
[2020-02-22 14:07] LABS: ALBUMIN 4.2 GM/DL (3.2-5.2); BILIRUBIN,TOTAL 0.7 MG/DL (0.2-1.0); CALCIUM LEVEL 9.8 MG/DL (8.8-10.2); CHOLESTEROL RISK RATIO 4.511 (<5); CREATININE FOR GFR 1.88 MG/DL (0.55-1.30); GLOMERULAR FILTRATION RATE 28.5 (>45); POTASSIUM SERUM 5.3 MEQ/L (3.5-5.1); TOTAL PROTEIN 7.6 GM/DL (6.4-8.2)
== END ==
LOC: M PLALAB 08:02
PROVIDERS: ATTEND Internal Medicine
DX: E78.00 Pure hypercholesterolemia, unspecified (principal); I10 Essential (primary) hypertension

== ENCOUNTER → 2020-03-21 | Outpatient (REF) | payer OTHER ==
[2020-05-17 00:44] LABS: CALCIUM LEVEL 9.5 MG/DL (8.8-10.2); CREATININE FOR GFR 1.64 MG/DL (0.55-1.30); GLOMERULAR FILTRATION RATE 33.4 (>45)
== END ==
LOC: M SFHCPLAZ 09:18
PROVIDERS: ATTEND Internal Medicine
DX: I10 Essential (primary) hypertension (principal)

== ENCOUNTER → 2020-03-21 | Outpatient (CLI) | payer OTHER ==
--- NOTE | 2020-04-27 08:48 | DEXA ---
AP SPINE L1 - L4 1.234 0.3 1.9 LT FEMUR TOTAL 1.024 0.1 1.4 LT NECK 0.947 -0.7 0.9 RT FEMUR TOTAL 0.996 -0.1 1.2 RT NECK 0.916 -0.9 0.6 TOTAL BODY TOTAL OTHER COMMENTS: Normal bone densitometry of the spine and hips. The increased density of the spine does not represent a significant change. The decreased density of the left hip does represent a significant change. The decreased density of the right hip does represent a significant change. The density of the spine is increased 12.9% since the initial exam on 03/09/2004. The increased 1.5% since the most recent exam on 09/02/2017. The density of the left hip has increased 4.2% since the initial exam on 03/09/2004. The density of the left hip has decreased 2.8% since the most recent exam on 09/02/2017. The density of the right hip is 0% since the initial exam on 03/09/2004. The density of the right hip has decreased 2.1% since the most recent exam on 09/02/2017. FOLLOW-UP: Recommendation for the next bone density exam: 5 years. ESHA
== END ==
LOC: M WHC 16:42
PROVIDERS: ATTEND Obstetrics & Gynecology
DX: Z12.31 Encounter for screening mammogram for malignant neoplasm of breast (principal); E28.39 Other primary ovarian failure; I10 Essential (primary) hypertension

== ENCOUNTER → 2020-08-03 | Outpatient (REF) | payer OTHER ==
[2020-08-03 10:55] LABS: BASO % 0.7 % (0.0-1.0); EOS # 0.1 10^3/uL (0.0-0.5); EOS % 2.3 % (0.0-3.0); HEMATOCRIT 38.2 % (36.0-47.0); HEMOGLOBIN 11.7 g/dl (12.0-15.5); LYMPH # 1.8 10^3/uL (1.5-5.0); MEAN CORPUSCULAR HGB CONC 30.6 g/dl (32.0-36.5); MEAN CORPUSCULAR VOLUME 94.8 fl (80.0-96.0); MONO # 0.6 10^3/uL (0.0-0.8); MONO % 10.7 % (0.0-5.0); NEUTROPHILS # 3.1 10^3/uL (1.5-8.5); NEUTROPHILS % 53.9 % (36.0-66.0); PLATELET COUNT, AUTOMATED 311 10^3/uL (150-450); RED BLOOD COUNT 4.03 10^6/uL (4.00-5.40); WHITE BLOOD COUNT 5.7 10^3/uL (4.0-10.0)
[2020-08-03 11:00] LABS: AMORPHOUS SEDIMENT SMALL (NEGATIVE); APPEARANCE, URINE HAZY (CLEAR); BACTERIA, URINE AUTO NEGATIVE (NEGATIVE); BILIRUBIN, URINE AUTO NEGATIVE (NEGATIVE); BLOOD, URINE BLOOD NEGATIVE (NEGATIVE); COLOR, URINE YELLOW (YELLOW); GLUCOSE, URINE (UA) AUTO NEGATIVE (NEGATIVE); KETONE, URINE AUTO NEGATIVE (NEGATIVE); LEUKOCYTE ESTERASE, URINE AUTO NEGATIVE (NEGATIVE); MUCUS, URINE SMALL (NEGATIVE); NITRITE, URINE AUTO NEGATIVE (NEGATIVE); PROTEIN, URINE AUTO NEGATIVE (NEGATIVE); RBC, URINE AUTO 1 /HPF (0-3); SPECIFIC GRAVITY URINE AUTO 1.018 (1.002-1.035); SQUAMOUS EPITHELIAL CELL UR AU 0 /HPF (0-6); UROBILINOGEN, URINE AUTO 0.2 mg/dL (0.0-2.0); WBC, URINE AUTO 1 /HPF (0-3)
[2020-08-03 11:26] LABS: HEMOGLOBIN A1c 5.6 %
[2020-08-03 11:36] LABS: ALBUMIN 3.9 GM/DL (3.2-5.2); BILIRUBIN,TOTAL 0.5 MG/DL (0.2-1.0); CALCIUM LEVEL 9.9 MG/DL (8.8-10.2); CHOLESTEROL RISK RATIO 4.333 (<5); CREATININE FOR GFR 1.8 MG/DL (0.55-1.30); GLOMERULAR FILTRATION RATE 29.9 (>45); MAGNESIUM LEVEL 2.1 MG/DL (1.8-2.4); POTASSIUM SERUM 5.4 MEQ/L (3.5-5.1); THYROID STIMULATING HORMONE 2.7 uIU/ML (0.358-3.740); TOTAL PROTEIN 7.2 GM/DL (6.4-8.2)
[2020-08-03 11:37] LABS: MALB URINE SIEMENS 13.2 MG/L; MAU/CREAT RATIO 11.2 MCG/MG (0.0-30.0); PTH INTACT 31.3 PG/ML (18.5-88.0)
[2020-08-03 12:17] LABS: HEPATITIS C VIRUS ABY INDEX 0.1 INDEX (<0.8)
== END ==
LOC: M SFHCPLAZ 08:28
PROVIDERS: ATTEND Internal Medicine
DX: E03.9 Hypothyroidism, unspecified (principal); R82.998 Other abnormal findings in urine; E78.00 Pure hypercholesterolemia, unspecified; I10 Essential (primary) hypertension; E88.81 Metabolic syndrome and other insulin resistance; Z11.59 Encounter for screening for other viral diseases; Z79.899 Other long term (current) drug therapy

== ENCOUNTER → 2020-09-19 | Outpatient (CLI) | payer OTHER ==
--- NOTE | 2020-09-19 08:39 | REPMRS ---
Patient History The patient states she had a clinical breast exam in February 2020. Family history of breast cancer at age 30 in maternal cousin, prostate cancer at age 50 or over in father, colorectal cancer at age 50 in maternal aunt, prostate cancer at age 50 or over in brother. Took unspecified hormones for 27 years 6 months. Digital Woman Screen Mammo: September 19, 2020 - Exam #: [id number] Bilateral CC and MLO view(s) were taken. Technologist: Brandie Mancia, Technologist Prior study comparison: September 18, 2019, bilateral digital woman screen mammo performed at [facility]. September 15, 2018, bilateral digital woman screen mammo performed at [facility]. September 02, 2017, digital woman screen mammo performed at [facility]. FINDINGS: The breast tissue is almost entirely fat. The Volpara volumetric breast density category is: A. There has been no change in the appearance of the mammogram from the prior studies. There is no interval development of dominant mass, architectural distortion, or grouped microcalcification typical of malignancy. 3-D tomosynthesis shows no additional findings. Assessment: BI-RADS/ACR category 1 mammogram. Negative Mammogram. Recommendation Routine screening mammogram of both breasts in 1 year (for women over age 40). This patient's [facility] Lifetime Breast Cancer RIsk is estimated at 6.8 %. This mammogram was interpreted with the aid of an FDA-approved computer-aided dectection system. Electronically Signed By: Derian Pires MD 09/19/20 [id number]
== END ==
LOC: M WHC 07:52
PROVIDERS: ATTEND Obstetrics & Gynecology
DX: Z12.31 Encounter for screening mammogram for malignant neoplasm of breast (principal)

== ENCOUNTER → 2021-01-23 | Outpatient (REF) | payer OTHER ==
[2021-01-23 12:56] LABS: BASO % 0.5 % (0.0-1.0); EOS # 0.2 10^3/uL (0.0-0.5); EOS % 3.7 % (0.0-3.0); HEMOGLOBIN 12.3 g/dl (12.0-15.5); LYMPH % 33.2 % (24.0-44.0); MEAN CORPUSCULAR HEMOGLOBIN 31.5 pg (27.0-33.0); MEAN CORPUSCULAR HGB CONC 32.4 g/dl (32.0-36.5); MEAN CORPUSCULAR VOLUME 97.4 fl (80.0-96.0); MONO # 0.6 10^3/uL (0.0-0.8); MONO % 10.5 % (2.0-8.0); NEUTROPHILS % 51.8 % (36.0-66.0); PLATELET COUNT, AUTOMATED 276 10^3/uL (150-450); WHITE BLOOD COUNT 5.9 10^3/uL (4.0-10.0)
[2021-01-23 13:29] LABS: ALBUMIN 3.7 GM/DL (3.2-5.2); BILIRUBIN,TOTAL 0.5 MG/DL (0.2-1.0); CALCIUM LEVEL 9.8 MG/DL (8.8-10.2); CHOLESTEROL RISK RATIO 3.92 (<5); CREATININE FOR GFR 1.48 MG/DL (0.55-1.30); GLOMERULAR FILTRATION RATE 37.4 (>45); THYROID STIMULATING HORMONE 1.85 uIU/ML (0.358-3.740)
== END ==
LOC: M SFHCADAM 08:36
PROVIDERS: ATTEND Internal Medicine
DX: Z79.899 Other long term (current) drug therapy (principal); E78.00 Pure hypercholesterolemia, unspecified; E03.9 Hypothyroidism, unspecified

== ENCOUNTER → 2021-05-15 | Outpatient (REF) | payer OTHER | LOC: M SFHCPLAZ 14:36 | PROVIDERS: ATTEND Internal Medicine | DX: Z01.818 Encounter for other preprocedural examination (principal); N18.30 Chronic kidney disease, stage 3 unspecified; I12.9 Hypertensive chronic kidney disease with stage 1 through stage 4 chronic kidney disease, or unspecified chronic kidney disease ==

== ENCOUNTER → 2021-05-15 | Outpatient (CLI) | payer OTHER ==
[2021-05-15 18:12] LABS: BASO % 0.6 % (0.0-1.0); EOS # 0.2 10^3/uL (0.0-0.5); EOS % 3.2 % (0.0-3.0); HEMATOCRIT 38.4 % (36.0-47.0); HEMOGLOBIN 12.4 g/dl (12.0-15.5); LYMPH # 2.4 10^3/uL (1.5-5.0); LYMPH % 37.4 % (24.0-44.0); MEAN CORPUSCULAR HEMOGLOBIN 30.2 pg (27.0-33.0); MEAN CORPUSCULAR HGB CONC 32.3 g/dl (32.0-36.5); MEAN CORPUSCULAR VOLUME 93.4 fl (80.0-96.0); MONO # 0.6 10^3/uL (0.0-0.8); MONO % 8.7 % (2.0-8.0); NEUTROPHILS # 3.1 10^3/uL (1.5-8.5); NEUTROPHILS % 49.6 % (36.0-66.0); PLATELET COUNT, AUTOMATED 255 10^3/uL (150-450); RED BLOOD COUNT 4.11 10^6/uL (4.00-5.40); WHITE BLOOD COUNT 6.3 10^3/uL (4.0-10.0)
[2021-05-15 18:29] LABS: INR 1.02; PROTHROMBIN TIME 13.8 SECONDS (12.7-14.5)
[2021-05-15 18:38] LABS: ALBUMIN 3.7 GM/DL (3.2-5.2); BILIRUBIN,TOTAL 0.4 MG/DL (0.2-1.0); CALCIUM LEVEL 9.8 MG/DL (8.8-10.2); CREATININE FOR GFR 1.75 MG/DL (0.55-1.30); GLOMERULAR FILTRATION RATE 30.9 (>45); POTASSIUM SERUM 4.7 MEQ/L (3.5-5.1); TOTAL PROTEIN 7.2 GM/DL (6.4-8.2)
== END ==
LOC: M PLALAB 14:39
PROVIDERS: ATTEND Internal Medicine
DX: Z01.818 Encounter for other preprocedural examination (principal); N18.30 Chronic kidney disease, stage 3 unspecified; I12.9 Hypertensive chronic kidney disease with stage 1 through stage 4 chronic kidney disease, or unspecified chronic kidney disease
CPT/HCPCS: 36415; 80053; 85025; 85610; 93005; G0463

== ENCOUNTER → 2021-07-24 | Outpatient (CLI) | payer OTHER ==
[2021-07-24 14:14] LABS: ALBUMIN 4.1 GM/DL (3.2-5.2); BILIRUBIN,TOTAL 0.5 MG/DL (0.2-1.0); CALCIUM LEVEL 10.3 MG/DL (8.8-10.2); CHOLESTEROL RISK RATIO 3.74 (<5); CREATININE FOR GFR 1.79 MG/DL (0.55-1.30); GLOMERULAR FILTRATION RATE 30.1 (>45); TOTAL PROTEIN 7.5 GM/DL (6.4-8.2)
[2021-07-24 14:21] LABS: PTH INTACT 47.5 PG/ML (18.5-88.0)
[2021-07-25 16:06] LABS: FOLATE 13.1 NG/ML (>5.4)
== END ==
LOC: M PLALAB 09:08
PROVIDERS: ATTEND Internal Medicine
DX: I12.9 Hypertensive chronic kidney disease with stage 1 through stage 4 chronic kidney disease, or unspecified chronic kidney disease (principal); N18.9 Chronic kidney disease, unspecified; E78.00 Pure hypercholesterolemia, unspecified

== ENCOUNTER → 2021-10-13 | Outpatient (CLI) | payer OTHER | LOC: M WHC 14:07 | PROVIDERS: ATTEND Internal Medicine | DX: Z12.31 Encounter for screening mammogram for malignant neoplasm of breast (principal) ==

== ENCOUNTER → 2021-10-30 | Outpatient (CLI) | payer OTHER | LOC: M WHC 07:46 | PROVIDERS: ATTEND Internal Medicine | DX: R92.2 Inconclusive mammogram (principal) | CPT/HCPCS: 77065; G0279 ==

== ENCOUNTER → 2021-11-01 | Outpatient (CLI) | payer OTHER ==
[2021-11-01 09:20] LABS: CALCIUM LEVEL 9.7 MG/DL (8.8-10.2); CREATININE FOR GFR 1.63 MG/DL (0.55-1.30); GLOMERULAR FILTRATION RATE 33.4 (>45); PHOSPHORUS LEVEL 2.8 MG/DL (2.5-4.9); POTASSIUM SERUM 5.2 MEQ/L (3.5-5.1)
== END ==
LOC: M LAB 07:24
PROVIDERS: ATTEND Internal Medicine
DX: N18.32 Chronic kidney disease, stage 3b (principal)

== ENCOUNTER → 2022-01-18 | Outpatient (CLI) | payer OTHER ==
[2022-01-18 08:11] LABS: BASO % 0.8 % (0.0-1.0); EOS # 0.2 10^3/uL (0.0-0.5); EOS % 4.6 % (0.0-3.0); HEMATOCRIT 37.2 % (36.0-47.0); HEMOGLOBIN 12.9 g/dl (12.0-15.5); LYMPH # 1.6 10^3/uL (1.5-5.0); LYMPH % 32.1 % (24.0-44.0); MEAN CORPUSCULAR HEMOGLOBIN 35.2 pg (27.0-33.0); MEAN CORPUSCULAR HGB CONC 34.7 g/dl (32.0-36.5); MEAN CORPUSCULAR VOLUME 101.6 fl (80.0-96.0); MONO # 0.4 10^3/uL (0.0-0.8); MONO % 8.1 % (2.0-8.0); NEUTROPHILS # 2.7 10^3/uL (1.5-8.5); NEUTROPHILS % 54.2 % (36.0-66.0); PLATELET COUNT, AUTOMATED 235 10^3/uL (150-450); RED BLOOD COUNT 3.66 10^6/uL (4.00-5.40)
[2022-01-18 08:41] LABS: ALBUMIN 3.8 GM/DL (3.2-5.2); BILIRUBIN,TOTAL 0.6 MG/DL (0.2-1.0); CALCIUM LEVEL 10.2 MG/DL (8.8-10.2); CHOLESTEROL RISK RATIO 4.391 (<5); CREATININE FOR GFR 1.97 MG/DL (0.55-1.30); GLOMERULAR FILTRATION RATE 26.8 (>45); MAGNESIUM LEVEL 2.1 MG/DL (1.8-2.4); THYROID STIMULATING HORMONE 1.86 uIU/ML (0.358-3.740); TOTAL PROTEIN 7.1 GM/DL (6.4-8.2)
[2022-01-18 08:45] LABS: PTH INTACT 36.5 PG/ML (18.5-88.0)
== END ==
LOC: M LAB 07:04
PROVIDERS: ATTEND Internal Medicine
DX: I12.9 Hypertensive chronic kidney disease with stage 1 through stage 4 chronic kidney disease, or unspecified chronic kidney disease (principal); N18.32 Chronic kidney disease, stage 3b; E78.00 Pure hypercholesterolemia, unspecified; E03.9 Hypothyroidism, unspecified

== ENCOUNTER → 2022-07-18 | Outpatient (CLI) | payer OTHER ==
[2022-07-18 08:43] LABS: HEMATOCRIT 37.3 % (36.0-47.0); HEMOGLOBIN 11.9 g/dl (12.0-15.5); MEAN CORPUSCULAR HEMOGLOBIN 32.5 pg (27.0-33.0); MEAN CORPUSCULAR HGB CONC 31.9 g/dl (32.0-36.5); MEAN CORPUSCULAR VOLUME 101.9 fl (80.0-96.0); PLATELET COUNT, AUTOMATED 249 10^3/uL (150-450); RED BLOOD COUNT 3.66 10^6/uL (4.00-5.40); WHITE BLOOD COUNT 5.9 10^3/uL (4.0-10.0)
[2022-07-18 08:56] LABS: C REACTIVE PROTEIN QUANTITATIV 0.7 MG/DL (<1.0)
[2022-07-18 08:57] LABS: CREATININE, URINE 131.9 MG/DL
[2022-07-18 08:58] LABS: ALBUMIN 3.9 G/DL (3.2-5.2); BILIRUBIN,TOTAL 0.5 MG/DL (0.3-1.2); CALCIUM LEVEL 10.1 MG/DL (8.3-10.6); CHOLESTEROL RISK RATIO 3.59 (<5); CREATININE FOR GFR 1.71 MG/DL (0.55-1.30); GLOMERULAR FILTRATION RATE 31.6 (>45); HDL CHOLESTEROL 51.5 MG/DL (>40); LDL CHOLESTEROL 108.3 MG/DL (<100); POTASSIUM SERUM 4.4 MMOL/L (3.5-5.1); TOTAL PROTEIN 6.9 G/DL (5.7-8.2)
[2022-07-18 08:59] LABS: MALB URINE SIEMENS < 3.0 MG/DL; MAU/CREAT RATIO 2.2 MCG/MG (0.0-30.0)
[2022-07-18 09:05] LABS: THYROID STIMULATING HORMONE 2.211 uIU/ML (0.55-4.78); TOTAL 25(OH) VITAMIN D 50.6 NG/ML (20.0-100.0)
[2022-07-18 09:06] LABS: FREE T4 1.45 NG/DL (0.89-1.76)
[2022-07-18 09:26] LABS: HEMOGLOBIN A1c 5.4 % (4.0-6.0)
== END ==
LOC: M LAB 07:59
PROVIDERS: ATTEND Internal Medicine Hematology
DX: I12.9 Hypertensive chronic kidney disease with stage 1 through stage 4 chronic kidney disease, or unspecified chronic kidney disease (principal); N18.9 Chronic kidney disease, unspecified; Z79.899 Other long term (current) drug therapy

== ENCOUNTER → 2022-11-15 | Outpatient (CLI) | payer OTHER ==
[2022-11-15 09:15] LABS: BASO % 0.6 % (0.0-1.0); EOS # 0.3 10^3/uL (0.0-0.5); HEMATOCRIT 38.8 % (36.0-47.0); HEMOGLOBIN 12.8 g/dl (12.0-15.5); LYMPH # 2.4 10^3/uL (1.5-5.0); MEAN CORPUSCULAR HEMOGLOBIN 32.2 pg (27.0-33.0); MEAN CORPUSCULAR VOLUME 97.7 fl (80.0-96.0); MONO # 0.6 10^3/uL (0.0-0.8); MONO % 9.5 % (2.0-8.0); NEUTROPHILS # 2.9 10^3/uL (1.5-8.5); NEUTROPHILS % 46.7 % (36.0-66.0); PLATELET COUNT, AUTOMATED 233 10^3/uL (150-450); RED BLOOD COUNT 3.97 10^6/uL (4.00-5.40); WHITE BLOOD COUNT 6.2 10^3/uL (4.0-10.0)
[2022-11-15 09:35] LABS: CREATININE, URINE 105.2 MG/DL; MALB URINE SIEMENS < 3.0 MG/L; MAU/CREAT RATIO 2.8 MCG/MG (0.0-30.0)
[2022-11-15 09:36] LABS: ALBUMIN 3.9 G/DL (3.2-5.2); BILIRUBIN,TOTAL 0.6 MG/DL (0.3-1.2); CALCIUM LEVEL 9.9 MG/DL (8.3-10.6); CREATININE FOR GFR 1.63 MG/DL (0.55-1.30); GLOMERULAR FILTRATION RATE 33.3 (>45); POTASSIUM SERUM 4.5 MMOL/L (3.5-5.1); TOTAL PROTEIN 6.9 G/DL (5.7-8.2)
[2022-11-15 09:37] LABS: THYROID STIMULATING HORMONE 4.012 uIU/ML (0.55-4.78)
== END ==
LOC: M LAB 08:43
PROVIDERS: ATTEND Internal Medicine Hematology
DX: I12.9 Hypertensive chronic kidney disease with stage 1 through stage 4 chronic kidney disease, or unspecified chronic kidney disease (principal); N18.32 Chronic kidney disease, stage 3b

== ENCOUNTER → 2022-11-19 | Outpatient (CLI) | payer OTHER | LOC: M WHC 10:53 | PROVIDERS: ATTEND Internal Medicine Hematology | DX: Z12.31 Encounter for screening mammogram for malignant neoplasm of breast (principal) ==

== ENCOUNTER → 2022-11-26 | Outpatient (CLI) | payer OTHER | LOC: M WHC 12:15 | PROVIDERS: ATTEND Internal Medicine Hematology | DX: Z12.31 Encounter for screening mammogram for malignant neoplasm of breast (principal); Z13.820 Encounter for screening for osteoporosis; I12.9 Hypertensive chronic kidney disease with stage 1 through stage 4 chronic kidney disease, or unspecified chronic kidney disease; I50.9 Heart failure, unspecified; N18.9 Chronic kidney disease, unspecified; M85.851 Other specified disorders of bone density and structure, right thigh; M85.852 Other specified disorders of bone density and structure, left thigh ==

== ENCOUNTER → 2023-01-07 | Outpatient (REF) | payer OTHER | LOC: M PLALAB 08:43 | PROVIDERS: ATTEND Nurse Practitioner Family | DX: Z12.4 Encounter for screening for malignant neoplasm of cervix (principal) | CPT/HCPCS: 87624; G0123 ==

== ENCOUNTER → 2023-05-20 | Outpatient (CLI) | payer OTHER ==
[~2023-05-20] MED LIST changes: +MECL-209 PO; -MECL1TAB31 PO
[2023-05-20 09:47] LABS: HEMATOCRIT 38.6 % (36.0-47.0); HEMOGLOBIN 12.5 g/dl (12.0-15.5); MEAN CORPUSCULAR HEMOGLOBIN 31.1 pg (27.0-33.0); MEAN CORPUSCULAR HGB CONC 32.4 g/dl (32.0-36.5); PLATELET COUNT, AUTOMATED 249 10^3/uL (150-450); RED BLOOD COUNT 4.02 10^6/uL (4.00-5.40); WHITE BLOOD COUNT 5.6 10^3/uL (4.0-10.0)
[2023-05-20 09:59] LABS: HEMOGLOBIN A1c 5.3 % (4.0-6.0)
[2023-05-20 10:10] LABS: C REACTIVE PROTEIN QUANTITATIV 1.1 MG/DL (<1.0)
[2023-05-20 10:12] LABS: CREATININE, URINE 53.3 MG/DL
[2023-05-20 10:13] LABS: MAU/CREAT RATIO 7.5 MCG/MG (0.0-30.0)
[2023-05-20 10:15] LABS: ALBUMIN 3.8 G/DL (3.2-5.2); BILIRUBIN,TOTAL 0.5 MG/DL (0.3-1.2); CALCIUM LEVEL 9.7 MG/DL (8.3-10.6); CHOLESTEROL RISK RATIO 4.05 (<5); CREATININE FOR GFR 1.49 MG/DL (0.55-1.30); FREE T4 1.35 NG/DL (0.89-1.76); GLOMERULAR FILTRATION RATE 36.9 (>45); HDL CHOLESTEROL 47.9 MG/DL (>40); LDL CHOLESTEROL 118.3 MG/DL (<100); NON-HDL-C 146.1 MG/DL; POTASSIUM SERUM 4.5 MMOL/L (3.5-5.1); THYROID STIMULATING HORMONE 2.788 uIU/ML (0.55-4.78); TOTAL 25(OH) VITAMIN D 54.2 NG/ML (20.0-100.0); TOTAL PROTEIN 6.8 G/DL (5.7-8.2)
== END ==
LOC: M LAB 08:42
PROVIDERS: ATTEND Internal Medicine Hematology
DX: I10 Essential (primary) hypertension (principal)

== ENCOUNTER 2023-08-02 16:52 | Emergency (ER) | payer OTHER ==
[~2023-08-02] VITALS: Ht 160 cm; Wt 101.8 kg
[2023-08-02] MEDS ORDERED: BENA-8 PO (20:12)
[2023-08-02] MEDS ORDERED: CHLO125TA PO (20:12)
[2023-08-02] MEDS ORDERED: AMLO1TAB24 PO (20:12)
[2023-08-02 21:39] LABS: RSV AMPLIFICATION NEGATIVE (NEGATIVE)
[2023-08-02] MEDS ORDERED: diphenhydrAMINE 50MG/ML VIAL IV STA (22:11)
[2023-08-02] MEDS ORDERED: methylPREDNISolone 125MG 2ML VIAL IV ONE (22:15)
[2023-08-02 22:19] LABS: BASO # 0.1 10^3/uL (0.0-0.2); BASO % 0.7 % (0.0-1.0); EOS # 0.3 10^3/uL (0.0-0.5); EOS % 3.9 % (0.0-3.0); HEMATOCRIT 37.4 % (36.0-47.0); HEMOGLOBIN 12.1 g/dl (12.0-15.5); LYMPH # 2.6 10^3/uL (1.5-5.0); LYMPH % 34.4 % (24.0-44.0); MEAN CORPUSCULAR HEMOGLOBIN 30.6 pg (27.0-33.0); MEAN CORPUSCULAR HGB CONC 32.4 g/dl (32.0-36.5); MEAN CORPUSCULAR VOLUME 94.7 fl (80.0-96.0); MONO # 0.6 10^3/uL (0.0-0.8); MONO % 8.1 % (2.0-8.0); NEUTROPHILS % 52.6 % (36.0-66.0); PLATELET COUNT, AUTOMATED 294 10^3/uL (150-450); RED BLOOD COUNT 3.95 10^6/uL (4.00-5.40); WHITE BLOOD COUNT 7.5 10^3/uL (4.0-10.0)
[2023-08-02] MEDS ORDERED: ISOVUE-370 76% 100ML VIAL As Ordered ONE (22:40)
[2023-08-03] MEDS ORDERED: PROT1TAB2 PO (00:41)
[2023-08-03 01:02] VITALS: BP 160/70; TEMP 97.3; O2SAT 97
== END 2023-08-03 01:04 | disposition home or self-care (01) ==
LOC: M ED 16:52
DX: R13.10 Dysphagia, unspecified (principal); I10 Essential (primary) hypertension; Z88.1 Allergy status to other antibiotic agents; Z88.7 Allergy status to serum and vaccine; Z91.013 Allergy to seafood; Z79.810 Long term (current) use of selective estrogen receptor modulators (SERMs); Z79.811 Long term (current) use of aromatase inhibitors; Z79.899 Other long term (current) drug therapy
CPT/HCPCS: 70360; 70491; 71260; 80047; 85025; 87631; 87880; 96374; 99283; J1200; J2930; Q9967

== ENCOUNTER → 2023-08-27 | Outpatient (CLI) | payer OTHER ==
[~2023-08-27] MED LIST changes: +AMLO1TAB24 PO; +BENA-8 PO; +CHLO125TA PO; +PROT1TAB2 PO
[2023-08-27 16:34] LABS: CALCIUM LEVEL 9.9 MG/DL (8.3-10.6); CREATININE FOR GFR 1.39 MG/DL (0.55-1.30); GLOMERULAR FILTRATION RATE 39.9 (>39); POTASSIUM SERUM 3.9 MMOL/L (3.5-5.1)
[2023-08-27 16:36] LABS: THYROID STIMULATING HORMONE 2.782 uIU/ML (0.55-4.78)
== END ==
LOC: M PLALAB 12:12
PROVIDERS: ATTEND Internal Medicine Hematology
DX: E03.9 Hypothyroidism, unspecified (principal); R07.89 Other chest pain; R06.02 Shortness of breath

== ENCOUNTER → 2023-10-16 | Outpatient (CLI) | payer OTHER ==
[~2023-10-16] MED LIST changes: +E-Z-GAS II EFFERVESCENT PACKET (SODIUM BICARB./CITRIC ACID/SIMETHICONE) As Ordered ONE; +E-Z-HD 98% w/w 340GM SUSP BTL As Ordered ONE; +E-Z-PAQUE 96% w/w SUSP 176GM BTL As Ordered ONE
== END ==
LOC: M RAD 08:38
PROVIDERS: ATTEND Physician Assistant Medical
DX: K22.5 Diverticulum of esophagus, acquired (principal); R13.10 Dysphagia, unspecified

== ENCOUNTER → 2023-11-20 | Outpatient (CLI) | payer OTHER ==
[~2023-11-20] MED LIST changes: -E-Z-GAS II EFFERVESCENT PACKET (SODIUM BICARB./CITRIC ACID/SIMETHICONE) As Ordered ONE; -E-Z-HD 98% w/w 340GM SUSP BTL As Ordered ONE; -E-Z-PAQUE 96% w/w SUSP 176GM BTL As Ordered ONE
[2023-11-20 10:25] LABS: BASO % 0.8 % (0.0-1.0); EOS # 0.2 10^3/uL (0.0-0.5); EOS % 3.3 % (0.0-3.0); HEMATOCRIT 40.1 % (36.0-47.0); HEMOGLOBIN 12.8 g/dl (12.0-15.5); LYMPH # 1.8 10^3/uL (1.5-5.0); LYMPH % 34.4 % (24.0-44.0); MEAN CORPUSCULAR HEMOGLOBIN 28.2 pg (27.0-33.0); MEAN CORPUSCULAR HGB CONC 31.9 g/dl (32.0-36.5); MEAN CORPUSCULAR VOLUME 88.3 fl (80.0-96.0); MONO # 0.4 10^3/uL (0.0-0.8); MONO % 8.1 % (2.0-8.0); NEUTROPHILS # 2.8 10^3/uL (1.5-8.5); NEUTROPHILS % 53.2 % (36.0-66.0); PLATELET COUNT, AUTOMATED 240 10^3/uL (150-450); RED BLOOD COUNT 4.54 10^6/uL (4.00-5.40); WHITE BLOOD COUNT 5.2 10^3/uL (4.0-10.0)
[2023-11-20 10:45] LABS: CREATININE, URINE 51.5 MG/DL
[2023-11-20 10:46] LABS: MALB URINE SIEMENS < 3.0 MG/L; MAU/CREAT RATIO 5.8 MCG/MG (0.0-30.0)
[2023-11-20 10:47] LABS: C REACTIVE PROTEIN QUANTITATIV 1.5 MG/DL (<1.0)
[2023-11-20 10:48] LABS: BILIRUBIN,TOTAL 0.6 MG/DL (0.3-1.2); CALCIUM LEVEL 10.3 MG/DL (8.3-10.6); CHOLESTEROL RISK RATIO 3.61 (<5); CREATININE FOR GFR 1.46 MG/DL (0.55-1.30); GLOMERULAR FILTRATION RATE 37.7 (>39); HEMOGLOBIN A1c 5.8 % (4.0-6.0); POTASSIUM SERUM 4.2 MMOL/L (3.5-5.1); TOTAL PROTEIN 6.9 G/DL (5.7-8.2)
[2023-11-20 10:49] LABS: FREE T4 1.21 NG/DL (0.89-1.76); THYROID STIMULATING HORMONE 3.038 uIU/ML (0.55-4.78)
[2023-11-20 10:50] LABS: TOTAL 25(OH) VITAMIN D 53.4 NG/ML (20.0-100.0)
== END ==
LOC: M LAB 08:52
PROVIDERS: ATTEND Internal Medicine Hematology
DX: I10 Essential (primary) hypertension (principal)

== ENCOUNTER → 2024-01-15 | Outpatient (CLI) | payer OTHER | LOC: M WHC 08:19 | PROVIDERS: ATTEND Nurse Practitioner Family | DX: Z12.31 Encounter for screening mammogram for malignant neoplasm of breast (principal) ==

== ENCOUNTER → 2024-01-15 | Outpatient (CLI) | payer OTHER | LOC: M EKG 09:51 | PROVIDERS: ATTEND Internal Medicine Cardiovascular Disease | DX: R00.2 Palpitations (principal); I44.0 Atrioventricular block, first degree ==

== ENCOUNTER → 2024-01-21 | Outpatient (CLI) | payer OTHER | LOC: M PLAIMG 09:46 | PROVIDERS: ATTEND Internal Medicine Cardiovascular Disease | DX: R06.02 Shortness of breath (principal) ==

== ENCOUNTER 2024-03-25 22:47 | Emergency (ER) | payer OTHER ==
[~2024-03-25] VITALS: Ht 160 cm; Wt 97.2 kg
[~2024-03-25 22:47] MED LIST changes: -FLON1SPR; +FLON1SPR NARES
[2024-03-26 01:13] LABS: BASO % 0.3 % (0.0-1.0); EOS # 0.1 10^3/uL (0.0-0.5); HEMATOCRIT 35.1 % (36.0-47.0); HEMOGLOBIN 11.4 g/dl (12.0-15.5); LYMPH # 0.5 10^3/uL (1.5-5.0); LYMPH % 6.4 % (24.0-44.0); MEAN CORPUSCULAR HEMOGLOBIN 30.5 pg (27.0-33.0); MEAN CORPUSCULAR HGB CONC 32.5 g/dl (32.0-36.5); MEAN CORPUSCULAR VOLUME 93.9 fl (80.0-96.0); MONO # 0.3 10^3/uL (0.0-0.8); MONO % 4.1 % (2.0-8.0); NEUTROPHILS # 6.9 10^3/uL (1.5-8.5); NEUTROPHILS % 87.8 % (36.0-66.0); PLATELET COUNT, AUTOMATED 185 10^3/uL (150-450); RED BLOOD COUNT 3.74 10^6/uL (4.00-5.40); WHITE BLOOD COUNT 7.9 10^3/uL (4.0-10.0)
[2024-03-26] MEDS: ONDANSETRON 4MG 2ML VIAL IV ONE (01:17)
[2024-03-26 01:30] LABS: LIPASE 47 U/L (12-53)
[2024-03-26 01:32] LABS: ALBUMIN 3.6 G/DL (3.2-5.2); ALKALINE PHOSPHATASE 58 U/L (46-116); ALT/SGPT 31 U/L (7.0-40); AST/SGOT 23 U/L (<34); BILIRUBIN,DIRECT 0.2 MG/DL (<0.4); BILIRUBIN,TOTAL 0.7 MG/DL (0.3-1.2); BLOOD UREA NITROGEN 42 MG/DL (9-23); CALCIUM LEVEL 9.5 MG/DL (8.3-10.6); CARBON DIOXIDE LEVEL 24 MMOL/L (20-31); CHLORIDE LEVEL 108 MMOL/L (98-107); CK-MB VALUE MASS < 1.0 NG/ML (<3.6); CPK CREATINE PHOSPHOKINASE 51 U/L (34-145); GLOMERULAR FILTRATION RATE 31.6 (>39); GLUCOSE, FASTING 129 MG/DL (74-106); MB/CK RELATIVE INDEX 1.96 (< OR =4); POTASSIUM SERUM 3.7 MMOL/L (3.5-5.1); SODIUM LEVEL 140 MMOL/L (136-145); TOTAL PROTEIN 6.5 G/DL (5.7-8.2)
[2024-03-26] MEDS: ACETAMINOPHEN 500 MG TAB PO ONE (02:10)
[2024-03-26] MEDS: NS 1,000 ML IV ONE (02:35)
[2024-03-26 03:11] LABS: CK-MB VALUE MASS < 1.0 NG/ML (<3.6)
[2024-03-26 03:32] LABS: CPK CREATINE PHOSPHOKINASE 47 U/L (34-145); MB/CK RELATIVE INDEX 2.12 (< OR =4)
[2024-03-26] MEDS ORDERED: CARV25TA PO (05:37)
[2024-03-26] MEDS ORDERED: SYST1SOL2 OU (05:37)
[2024-03-26] MEDS: cefTRIAXone SOD 1 GM in D5W MINI-BAG PLUS 50 ML IV ONE (05:37)
[2024-03-26] MEDS ORDERED: LOSA50TA28 PO (05:37)
[2024-03-26] MEDS ORDERED: MULT-40 PO (05:37)
[2024-03-26] MEDS ORDERED: POTA10CA70 PO (05:37)
[2024-03-26] MEDS ORDERED: SYNT88TA2 PO (05:37)
[2024-03-26] MEDS ORDERED: C-501TAB3 PO (05:37)
[2024-03-26] MEDS ORDERED: HOME MED LIST COMPLETE! XX SCH (05:40)
[2024-03-26] MEDS: KETOROLAC 30 MG/ML 1ML VIAL IV ONE (06:01)
[2024-03-26] MEDS ORDERED: KETO10TAB PO (07:10)
[2024-03-26] MEDS ORDERED: CEFU50TA PO (07:10)
[2024-03-26 08:10] VITALS: BP 96/50; TEMP 99; O2SAT 96
[2024-03-30] MEDS ORDERED: LEVO1TAB39 PO (10:06)
== END 2024-03-26 08:13 | disposition home or self-care (01) ==
LOC: M ED 22:47
DX: N39.0 Urinary tract infection, site not specified (principal); R06.02 Shortness of breath; K59.00 Constipation, unspecified; I10 Essential (primary) hypertension; E03.9 Hypothyroidism, unspecified; N18.30 Chronic kidney disease, stage 3 unspecified; K22.5 Diverticulum of esophagus, acquired; Z79.811 Long term (current) use of aromatase inhibitors; Z79.2 Long term (current) use of antibiotics; Z79.899 Other long term (current) drug therapy; Z88.7 Allergy status to serum and vaccine; Z88.1 Allergy status to other antibiotic agents; Z88.8 Allergy status to other drugs, medicaments and biological substances; Z91.013 Allergy to seafood
CPT/HCPCS: 71045; 74176; 80048; 80076; 81001; 82550; 82553; 83605; 83690; 83880; 84484; 85025; 87040; 87077; 87088; 87186; 87486; 87581; 87633; 87798; 93005; 96374; 96375; 99285; J0696; J1885; J2405

== ENCOUNTER → 2024-04-10 | Outpatient (REF) | payer OTHER ==
[~2024-04-10] MED LIST changes: +C-501TAB3 PO; +CARV25TA PO; +CEFU50TA PO; +KETO10TAB PO; +LEVO1TAB39 PO; +LOSA50TA28 PO; +MULT-40 PO; +POTA10CA70 PO; +SYNT88TA2 PO; +SYST1SOL2 OU
== END ==
LOC: M LAB REF 17:03
PROVIDERS: ATTEND Urology
DX: N20.0 Calculus of kidney (principal)

== ENCOUNTER 2024-05-01 09:51 | Day surgery (SDC) | payer OTHER ==
[~2024-05-01] VITALS: Ht 160 cm; Wt 92.2 kg
[2024-05-01] MEDS: NS 1,000 ML IV ONE (10:11)
[2024-05-01] MEDS ORDERED: NOXI1TAB PO (10:13)
[2024-05-01] MEDS ORDERED: propofoL 500 MG/50 ML VIAL As Ordered ONE (12:06)
[2024-05-01] MEDS ORDERED: LIDOCAINE 2% 100MG/5ML SDV (FOR ANES.) As Ordered ONE (12:06)
[2024-05-01] MEDS ORDERED: fentaNYL 100 MCG/2 ML INJECTION As Ordered ONE (12:06)
[2024-05-01 12:40] VITALS: TEMP 96.7
[2024-05-01 13:04] VITALS: BP 129/55; O2SAT 94
== END 2024-05-01 13:10 | disposition home or self-care (01) ==
LOC: M OPP 09:51
PROVIDERS: ATTEND Internal Medicine Gastroenterology
DX: Q39.4 Esophageal web (principal); Z12.11 Encounter for screening for malignant neoplasm of colon; R13.12 Dysphagia, oropharyngeal phase; K64.8 Other hemorrhoids; Z87.19 Personal history of other diseases of the digestive system; Z80.0 Family history of malignant neoplasm of digestive organs; E11.22 Type 2 diabetes mellitus with diabetic chronic kidney disease; I12.9 Hypertensive chronic kidney disease with stage 1 through stage 4 chronic kidney disease, or unspecified chronic kidney disease; E03.9 Hypothyroidism, unspecified; N18.32 Chronic kidney disease, stage 3b; Z79.899 Other long term (current) drug therapy; Z79.890 Hormone replacement therapy; Z90.89 Acquired absence of other organs; Z90.710 Acquired absence of both cervix and uterus; Z88.1 Allergy status to other antibiotic agents; Z88.8 Allergy status to other drugs, medicaments and biological substances; Z91.013 Allergy to seafood; Z91.041 Radiographic dye allergy status; Z87.891 Personal history of nicotine dependence
CPT/HCPCS: 43249; G0105; J3010

== ENCOUNTER → 2024-05-08 | Outpatient (CLI) | payer OTHER ==
[~2024-05-08] MED LIST changes: +LEVO88TA3 PO; +NOXI1TAB PO; +VITA-256 PO
[2024-05-08 10:00] LABS: BASO % 0.5 % (0.0-1.0); EOS # 0.2 10^3/uL (0.0-0.5); EOS % 2.8 % (0.0-3.0); HEMATOCRIT 39.8 % (36.0-47.0); HEMOGLOBIN 12.8 g/dl (12.0-15.5); LYMPH # 1.8 10^3/uL (1.5-5.0); LYMPH % 32.7 % (24.0-44.0); MEAN CORPUSCULAR HEMOGLOBIN 29.6 pg (27.0-33.0); MEAN CORPUSCULAR HGB CONC 32.2 g/dl (32.0-36.5); MEAN CORPUSCULAR VOLUME 92.1 fl (80.0-96.0); MONO # 0.4 10^3/uL (0.0-0.8); MONO % 7.3 % (2.0-8.0); NEUTROPHILS # 3.2 10^3/uL (1.5-8.5); NEUTROPHILS % 56.3 % (36.0-66.0); PLATELET COUNT, AUTOMATED 240 10^3/uL (150-450); RED BLOOD COUNT 4.32 10^6/uL (4.00-5.40); WHITE BLOOD COUNT 5.6 10^3/uL (4.0-10.0)
[2024-05-08 10:19] LABS: C REACTIVE PROTEIN QUANTITATIV 1.1 MG/DL (<1.0)
[2024-05-08 10:20] LABS: CREATININE, URINE 46.7 MG/DL; MALB URINE SIEMENS < 3.0 MG/L; MAU/CREAT RATIO 6.4 MCG/MG (0.0-30.0)
[2024-05-08 10:35] LABS: HEMOGLOBIN A1c 5.7 % (4.0-6.0)
[2024-05-08 10:36] LABS: BILIRUBIN,TOTAL 0.7 MG/DL (0.3-1.2); CALCIUM LEVEL 10.8 MG/DL (8.3-10.6); CHOLESTEROL RISK RATIO 3.81 (<5); CREATININE FOR GFR 1.53 MG/DL (0.55-1.30); FREE T4 1.35 NG/DL (0.89-1.76); GLOMERULAR FILTRATION RATE 35.7 (>39); HDL CHOLESTEROL 48.5 MG/DL (>40); LDL CHOLESTEROL 100.9 MG/DL (<100); NON-HDL-C 136.5 MG/DL; POTASSIUM SERUM 4.1 MMOL/L (3.5-5.1); THYROID STIMULATING HORMONE 3.978 uIU/ML (0.55-4.78); TOTAL 25(OH) VITAMIN D 53.9 NG/ML (20.0-100.0); TOTAL PROTEIN 7.3 G/DL (5.7-8.2)
== END ==
LOC: M LAB 09:03
PROVIDERS: ATTEND Internal Medicine Hematology
DX: I10 Essential (primary) hypertension (principal); N20.0 Calculus of kidney; Z79.899 Other long term (current) drug therapy

== ENCOUNTER → 2024-05-08 | Outpatient (CLI) | payer OTHER ==
[2024-05-08 09:59] LABS: HEMATOCRIT 39.6 % (36.0-47.0); HEMOGLOBIN 12.8 g/dl (12.0-15.5); MEAN CORPUSCULAR HEMOGLOBIN 30.1 pg (27.0-33.0); MEAN CORPUSCULAR HGB CONC 32.3 g/dl (32.0-36.5); MEAN CORPUSCULAR VOLUME 93.2 fl (80.0-96.0); PLATELET COUNT, AUTOMATED 239 10^3/uL (150-450); RED BLOOD COUNT 4.25 10^6/uL (4.00-5.40); WHITE BLOOD COUNT 5.7 10^3/uL (4.0-10.0)
[2024-05-08 10:22] LABS: BILIRUBIN,TOTAL 0.7 MG/DL (0.3-1.2); CALCIUM LEVEL 10.9 MG/DL (8.3-10.6); CREATININE FOR GFR 1.53 MG/DL (0.55-1.30); GLOMERULAR FILTRATION RATE 35.7 (>39); POTASSIUM SERUM 4.2 MMOL/L (3.5-5.1); TOTAL PROTEIN 7.3 G/DL (5.7-8.2)
== END ==
LOC: M LAB 09:07
PROVIDERS: ATTEND Urology
DX: N20.0 Calculus of kidney (principal)

== ENCOUNTER → 2024-05-25 | Outpatient (CLI) | payer OTHER ==
[2024-05-25 10:00] LABS: ALBUMIN 3.6 G/DL (3.2-5.2); CALCIUM LEVEL 11.1 MG/DL (8.3-10.6); CREATININE FOR GFR 1.47 MG/DL (0.55-1.30); GLOMERULAR FILTRATION RATE 37.4 (>39); MAGNESIUM LEVEL 1.8 MG/DL (1.8-2.4); POTASSIUM SERUM 4.3 MMOL/L (3.5-5.1)
== END ==
LOC: M LAB 08:16
PROVIDERS: ATTEND Internal Medicine Cardiovascular Disease
DX: I10 Essential (primary) hypertension (principal)

== ENCOUNTER 2024-06-01 09:28 | Day surgery (SDC) | payer OTHER ==
[~2024-06-01] VITALS: Ht 160 cm; Wt 92.5 kg
[~2024-06-01 09:28] MED LIST changes: +LIDOCAINE 2% 100MG/5ML SDV (FOR ANES.) As Ordered ONE; +ONDANSETRON 4MG 2ML VIAL As Ordered ONE; +ceFAZolin SOD 2 GM in IV 1 EA IV ONE; +dexmedeTOMIDine (4MCG/ML)200MCG/50ML BTL (PRECEDEX) As Ordered ONE; +fentaNYL 100 MCG/2 ML INJECTION As Ordered ONE; +propofoL 200 MG/20 ML VIAL As Ordered ONE
[2024-06-01] MEDS ORDERED: CINA30TA5 PO (10:29)
[2024-06-01] MEDS ORDERED: CALC250T PO (10:29)
[2024-06-01] MEDS ORDERED: ALLO100T PO (10:29)
[2024-06-01] MEDS ORDERED: LR 1,000 ML IV SCH ×2 (10:30→13:30)
[2024-06-01] MEDS ORDERED: ceFAZolin SOD 2 GM in IV 1 EA IV ONE (11:10)
[2024-06-01] MEDS ORDERED: MIDAZOLAM INJ 2MG/2ML VIAL As Ordered ONE (11:33)
[2024-06-01] MEDS: ceFAZolin 2 GM/D5W 50 ML IV BAG As Ordered ONE (12:00)
[2024-06-01] MEDS: ISOVUE-300 61% 100ML VIAL As Ordered ONE (12:18)
[2024-06-01] MEDS ORDERED: ACETAMINOPHEN 1000MG 100ML IV BAG As Ordered ONE (12:45)
[2024-06-01] MEDS ORDERED: OXYB5TAB14 PO (13:25)
[2024-06-01] MEDS ORDERED: PYRI1TAB5 PO (13:25)
[2024-06-01] MEDS ORDERED: MACR100C43 PO (13:25)
[2024-06-01] MEDS ORDERED: ONDANSETRON 4MG 2ML VIAL IV PRN (13:30)
[2024-06-01] MEDS ORDERED: fentaNYL 100 MCG/2 ML INJECTION IV PRN (13:30)
[2024-06-01 14:41] VITALS: BP 132/60; TEMP 97.9; O2SAT 96
== END 2024-06-01 14:50 | disposition home or self-care (01) ==
LOC: M SDC 09:28
PROVIDERS: ATTEND Urology
DX: N20.0 Calculus of kidney (principal); I12.9 Hypertensive chronic kidney disease with stage 1 through stage 4 chronic kidney disease, or unspecified chronic kidney disease; R94.31 Abnormal electrocardiogram [ECG] [EKG]; E11.9 Type 2 diabetes mellitus without complications; E03.9 Hypothyroidism, unspecified; N18.32 Chronic kidney disease, stage 3b; Z79.899 Other long term (current) drug therapy; Z88.1 Allergy status to other antibiotic agents; Z88.8 Allergy status to other drugs, medicaments and biological substances; Z91.013 Allergy to seafood; Z87.891 Personal history of nicotine dependence
CPT/HCPCS: 52356; 76000; 82365; C1769; C1894; C2617; J0131; J0690; J1100; J2250; J2405; J3010; Q9967

== ENCOUNTER → 2024-06-16 | Outpatient (CLI) | payer OTHER ==
[~2024-06-16] MED LIST changes: +ALLO100T PO; +CALC250T PO; +CINA30TA5 PO; +EPIN0.055 OU; -EPIN1DRO OU; -LIDOCAINE 2% 100MG/5ML SDV (FOR ANES.) As Ordered ONE; +MACR100C43 PO; -ONDANSETRON 4MG 2ML VIAL As Ordered ONE; +OXYB5TAB14 PO; +POTA4.25 PO; +PYRI1TAB5 PO; -ceFAZolin SOD 2 GM in IV 1 EA IV ONE; -dexmedeTOMIDine (4MCG/ML)200MCG/50ML BTL (PRECEDEX) As Ordered ONE; -fentaNYL 100 MCG/2 ML INJECTION As Ordered ONE; -propofoL 200 MG/20 ML VIAL As Ordered ONE
== END ==
LOC: M PLAIMG 15:53
PROVIDERS: ATTEND Urology
DX: N20.0 Calculus of kidney (principal); Z96.0 Presence of urogenital implants

== ENCOUNTER → 2024-08-04 | Outpatient (CLI) | payer OTHER ==
[2024-08-04 09:12] LABS: HEMATOCRIT 40.1 % (36.0-47.0); HEMOGLOBIN 12.9 g/dl (12.0-15.5); MEAN CORPUSCULAR HEMOGLOBIN 29.9 pg (27.0-33.0); MEAN CORPUSCULAR HGB CONC 32.2 g/dl (32.0-36.5); MEAN CORPUSCULAR VOLUME 92.8 fl (80.0-96.0); PLATELET COUNT, AUTOMATED 242 10^3/uL (150-450); RED BLOOD COUNT 4.32 10^6/uL (4.00-5.40); WHITE BLOOD COUNT 5.5 10^3/uL (4.0-10.0)
[2024-08-04 09:35] LABS: ALBUMIN 3.9 G/DL (3.2-5.2); BILIRUBIN,TOTAL 0.6 MG/DL (0.3-1.2); CALCIUM LEVEL 10.2 MG/DL (8.3-10.6); CREATININE FOR GFR 1.4 MG/DL (0.55-1.30); GLOMERULAR FILTRATION RATE 39.5 (>39); POTASSIUM SERUM 4.1 MMOL/L (3.5-5.1); TOTAL PROTEIN 7.1 G/DL (5.7-8.2)
== END ==
LOC: M LAB 08:13
PROVIDERS: ATTEND Urology
DX: N20.0 Calculus of kidney (principal)

== ENCOUNTER 2024-08-13 11:25 | Day surgery (SDC) | payer OTHER ==
[~2024-08-13] VITALS: Ht 160 cm; Wt 92.1 kg
[2024-08-13] MEDS ORDERED: LR 1,000 ML IV SCH (11:30)
[2024-08-13] MEDS ORDERED: ACETAMINOPHEN 1000MG/100ML IV BAG As Ordered ONE (13:27)
[2024-08-13] MEDS ORDERED: ONDANSETRON 4MG 2ML VIAL As Ordered ONE (13:27)
[2024-08-13] MEDS ORDERED: propofoL 200 MG/20 ML VIAL As Ordered ONE (13:27)
[2024-08-13] MEDS ORDERED: LIDOCAINE 2% 100MG/5ML SDV (FOR ANES.) As Ordered ONE (13:27)
[2024-08-13] MEDS ORDERED: MIDAZOLAM INJ 2MG/2ML VIAL As Ordered ONE (13:27)
[2024-08-13] MEDS ORDERED: fentaNYL 100 MCG/2 ML INJECTION As Ordered ONE (13:28)
[2024-08-13] MEDS: ceFAZolin SOD 2 GM in IV 1 EA IV ONE (13:40)
[2024-08-13] MEDS ORDERED: ePHEDrine SULFATE 25 MG/5 ML(5MG/ML) SYRINGE As Ordered ONE (13:50)
[2024-08-13 14:20] VITALS: BP 117/57; TEMP 97.1; O2SAT 98
== END 2024-08-13 14:40 | disposition home or self-care (01) ==
LOC: M SDC 11:25
PROVIDERS: ATTEND Urology
DX: N20.0 Calculus of kidney (principal); E11.9 Type 2 diabetes mellitus without complications; I12.9 Hypertensive chronic kidney disease with stage 1 through stage 4 chronic kidney disease, or unspecified chronic kidney disease; E11.22 Type 2 diabetes mellitus with diabetic chronic kidney disease; N18.32 Chronic kidney disease, stage 3b; E03.9 Hypothyroidism, unspecified; Z79.899 Other long term (current) drug therapy; Z79.890 Hormone replacement therapy; Z87.442 Personal history of urinary calculi; Z88.8 Allergy status to other drugs, medicaments and biological substances; Z91.013 Allergy to seafood; Z88.7 Allergy status to serum and vaccine
CPT/HCPCS: 50590; J0131; J0690; J1100; J2250; J2405; J3010

== ENCOUNTER → 2024-09-03 | Outpatient (CLI) | payer OTHER | LOC: M RAD 08:38 | PROVIDERS: ATTEND Urology | DX: N20.0 Calculus of kidney (principal) ==

== ENCOUNTER → 2024-09-04 | Outpatient (REF) | payer OTHER | LOC: M SMT 10:06 | PROVIDERS: ATTEND Physician Assistant | DX: Z48.816 Encounter for surgical aftercare following surgery on the genitourinary system (principal) ==

== ENCOUNTER → 2024-10-06 | Outpatient (REF) | payer OTHER ==
[2024-10-06 14:01] LABS: APPEARANCE, URINE CLEAR (CLEAR); BACTERIA, URINE AUTO NEGATIVE (NEGATIVE); BILIRUBIN, URINE AUTO NEGATIVE (NEGATIVE); BLOOD, URINE BLOOD NEGATIVE (NEGATIVE); COLOR, URINE YELLOW (YELLOW); GLUCOSE, URINE (UA) AUTO NEGATIVE (NEGATIVE); KETONE, URINE AUTO NEGATIVE (NEGATIVE); LEUKOCYTE ESTERASE, URINE AUTO 2+ (NEGATIVE); NITRITE, URINE AUTO NEGATIVE (NEGATIVE); PROTEIN, URINE AUTO NEGATIVE (NEGATIVE); RBC, URINE AUTO 1 /HPF (0-3); SPECIFIC GRAVITY URINE AUTO 1.009 (1.002-1.035); SQUAMOUS EPITHELIAL CELL UR AU 0 /HPF (0-6); UROBILINOGEN, URINE AUTO 0.2 mg/dL (0.0-2.0); WBC, URINE AUTO 24 /HPF (0-3)
== END ==
LOC: M SMT 12:49
PROVIDERS: ATTEND Urology
DX: R39.9 Unspecified symptoms and signs involving the genitourinary system (principal)

== ENCOUNTER → 2024-10-20 | Outpatient (REF) | payer OTHER ==
[2024-10-20 14:10] LABS: APPEARANCE, URINE HAZY (CLEAR); BACTERIA, URINE AUTO NEGATIVE (NEGATIVE); BILIRUBIN, URINE AUTO NEGATIVE (NEGATIVE); BLOOD, URINE BLOOD 1+ (NEGATIVE); COLOR, URINE YELLOW (YELLOW); GLUCOSE, URINE (UA) AUTO NEGATIVE (NEGATIVE); KETONE, URINE AUTO NEGATIVE (NEGATIVE); LEUKOCYTE ESTERASE, URINE AUTO 2+ (NEGATIVE); NITRITE, URINE AUTO NEGATIVE (NEGATIVE); PROTEIN, URINE AUTO NEGATIVE (NEGATIVE); RBC, URINE AUTO 6 /HPF (0-3); SPECIFIC GRAVITY URINE AUTO 1.016 (1.002-1.035); SQUAMOUS EPITHELIAL CELL UR AU 1 /HPF (0-6); UROBILINOGEN, URINE AUTO 0.2 mg/dL (0.0-2.0); WBC, URINE AUTO 34 /HPF (0-3)
== END ==
LOC: M SMT 12:54
PROVIDERS: ATTEND Nurse Practitioner Family
DX: R39.9 Unspecified symptoms and signs involving the genitourinary system (principal)

== ENCOUNTER → 2025-01-28 | Outpatient (CLI) | payer OTHER ==
[~2025-01-28] MED LIST changes: -AMBI5TAB PO; +ZOLP-532 PO
== END ==
LOC: M WHC 08:39
PROVIDERS: ATTEND Nurse Practitioner Family
DX: Z12.31 Encounter for screening mammogram for malignant neoplasm of breast (principal); M85.851 Other specified disorders of bone density and structure, right thigh; M85.852 Other specified disorders of bone density and structure, left thigh

== ENCOUNTER → 2025-02-22 | Outpatient (CLI) | payer OTHER ==
[2025-02-22 11:22] LABS: ALT/SGPT 20.0 U/L (7.0-40); AST/SGOT 27.0 U/L (<34); CALCIUM LEVEL 9.9 MG/DL (8.3-10.6); CARBON DIOXIDE LEVEL 28.0 MMOL/L (20-31); CHLORIDE LEVEL 102.0 MMOL/L (98-107); CREATININE FOR GFR 1.59 MG/DL (0.55-1.30); GLOMERULAR FILTRATION RATE 34.5 (>39); POTASSIUM SERUM 4.2 MMOL/L (3.5-5.1); SODIUM LEVEL 143.0 MMOL/L (136-145)
== END ==
LOC: M PLALAB 07:50
PROVIDERS: ATTEND Nurse Practitioner Family
DX: M85.80 Other specified disorders of bone density and structure, unspecified site (principal)

== ENCOUNTER → 2025-03-12 | Outpatient (CLI) | payer OTHER ==
[~2025-03-12] MED LIST changes: +E-Z-GAS II EFFERVESCENT PACKET (SODIUM BICARB./CITRIC ACID/SIMETHICONE) As Ordered ONE; +E-Z-HD 98% w/w 340 GM SUSP BTL As Ordered ONE; +E-Z-PAQUE 96% w/w SUSP 176 GM BTL As Ordered ONE
== END ==
LOC: M RAD 09:00
PROVIDERS: ATTEND Physician Assistant Medical
DX: R13.10 Dysphagia, unspecified (principal); K22.5 Diverticulum of esophagus, acquired; K44.9 Diaphragmatic hernia without obstruction or gangrene

== ENCOUNTER → 2025-03-15 | Outpatient (REF) | payer OTHER ==
[~2025-03-15] MED LIST changes: -E-Z-GAS II EFFERVESCENT PACKET (SODIUM BICARB./CITRIC ACID/SIMETHICONE) As Ordered ONE; -E-Z-HD 98% w/w 340 GM SUSP BTL As Ordered ONE; -E-Z-PAQUE 96% w/w SUSP 176 GM BTL As Ordered ONE
[2025-03-15 13:49] LABS: APPEARANCE, URINE CLEAR (CLEAR); BACTERIA, URINE AUTO 1+ (NEGATIVE); BILIRUBIN, URINE AUTO NEGATIVE (NEGATIVE); BLOOD, URINE BLOOD NEGATIVE (NEGATIVE); GLUCOSE, URINE (UA) AUTO NEGATIVE (NEGATIVE); KETONE, URINE AUTO NEGATIVE (NEGATIVE); LEUKOCYTE ESTERASE, URINE AUTO NEGATIVE (NEGATIVE); MUCUS, URINE SMALL (NEGATIVE); NITRITE, URINE AUTO NEGATIVE (NEGATIVE); PROTEIN, URINE AUTO NEGATIVE (NEGATIVE); RBC, URINE AUTO 0 /HPF (0-3); SPECIFIC GRAVITY URINE AUTO 1.015 (1.002-1.035); SQUAMOUS EPITHELIAL CELL UR AU 1 /HPF (0-6); UROBILINOGEN, URINE AUTO 0.2 mg/dL (0.0-2.0); WBC, URINE AUTO 2 /HPF (0-3)
== END ==
LOC: M SMT 12:41
PROVIDERS: ATTEND Urology
DX: Z87.440 Personal history of urinary (tract) infections (principal)

== ENCOUNTER 2025-04-16 09:11 | Day surgery (SDC) | payer OTHER ==
[~2025-04-16] VITALS: Ht 160 cm; Wt 98.5 kg
[~2025-04-16 09:11] MED LIST changes: +ALEN70TA82 PO; +ESTR0.1C5; -ZOLP5TAB PO; +ZOLP5TAB9 PO
[2025-04-16] MEDS ORDERED: LIDOCAINE 2% 100 MG/5 ML SDV (FOR ANES.) As Ordered ONE (10:01)
[2025-04-16 10:16] VITALS: TEMP 97.4
[2025-04-16 10:34] VITALS: BP 121/58; O2SAT 96
== END 2025-04-16 10:39 | disposition home or self-care (01) ==
LOC: M OPP 09:11
PROVIDERS: ATTEND Internal Medicine Gastroenterology
DX: K22.2 Esophageal obstruction (principal); K31.89 Other diseases of stomach and duodenum; R13.10 Dysphagia, unspecified; Z88.1 Allergy status to other antibiotic agents; Z88.8 Allergy status to other drugs, medicaments and biological substances; Z88.7 Allergy status to serum and vaccine; Z91.013 Allergy to seafood; Z91.041 Radiographic dye allergy status; Z91.048 Other nonmedicinal substance allergy status; Z79.51 Long term (current) use of inhaled steroids; Z79.899 Other long term (current) drug therapy

== ENCOUNTER → 2025-06-09 | Outpatient (REF) | payer OTHER ==
[2025-06-09 14:19] LABS: APPEARANCE, URINE CLEAR (CLEAR); BACTERIA, URINE AUTO NEGATIVE (NEGATIVE); BILIRUBIN, URINE AUTO NEGATIVE (NEGATIVE); BLOOD, URINE BLOOD NEGATIVE (NEGATIVE); GLUCOSE, URINE (UA) AUTO NEGATIVE (NEGATIVE); KETONE, URINE AUTO NEGATIVE (NEGATIVE); LEUKOCYTE ESTERASE, URINE AUTO 1+ (NEGATIVE); NITRITE, URINE AUTO NEGATIVE (NEGATIVE); PROTEIN, URINE AUTO NEGATIVE (NEGATIVE); RBC, URINE AUTO 1 /HPF (0-3); SPECIFIC GRAVITY URINE AUTO 1.011 (1.002-1.035); SQUAMOUS EPITHELIAL CELL UR AU 2 /HPF (0-6); UROBILINOGEN, URINE AUTO 0.2 mg/dL (0.0-2.0); WBC, URINE AUTO 15 /HPF (0-3)
== END ==
LOC: M SMT 13:00
PROVIDERS: ATTEND Urology
DX: R39.9 Unspecified symptoms and signs involving the genitourinary system (principal)